=== PATIENT | female | born 1990 | race Caucasian/White ===

== ENCOUNTER 2019-12-25 15:56 | Inpatient (IN) | payer OTHER, SELFPAY ==
[2019-12-25] VITALS (10 sets, daily range): BP systolic 101–132; BP diastolic 58–86; PULSE 96–110; RESP 9–20; TEMP 37.1–37.6; O2SAT 98–100; BMI 22.4; BMI 19.3
--- NOTE | ~2019-12-25 | XR_ITS ---
XR knee LT 3V 12/25/2019 18:41 INDICATION: Left knee swelling and erythema PROCEDURE: 3 views left knee COMPARISON: No prior studies for comparison. FINDINGS: Fracture, dislocation or subluxation is not identified. Small joint effusion. The soft tiss ues appear within normal limits. No foreign bodies are identified. IMPRESSION: 1: No acute bone or joint abnormality. 2: Small joint effusion. Reviewed, dictated and finalized at location A.
--- NOTE | ~2019-12-25 | US_ITS ---
EXAMINATION: US venous doppler [facility] DATE: 12/27/2019 08:24 INDICATION: Left lower limb swelling. TECHNIQUE: Grayscale ultrasound images without and with compression and Doppler ultrasound images of the bilateral lower extremity veins were obtained. COMPARISON: None. FINDINGS: The visualized portions of right common femoral vein, profunda (deep) femoral vein, femoral vein, pop liteal vein, peroneal veins, posterior tibial veins, and greater saphenous vein outflow are patent. The visualized portions of left common femoral vein, profunda femoral vein, femoral vein, popliteal v ein, peroneal veins, posterior tibial veins, and greater saphenous vein outflow are patent. IMPRESSION: 1. No deep venous thrombosis. Reviewed, dictated and finalized at location A.
[2019-12-25 16:28] LABS: Glucose Point of Care > 500 (65-105)
[2019-12-25 16:33] LABS: Basophils Percent Auto 0.3 % (0.2-1.2); Eosinophils Absolute Auto 0.1 K/mm3 (0-0.3); Hematocrit 36.1 % (37.0-47.0); Hemoglobin 11.4 g/dL (12.0-15.0); Immature Granulocyte Absolute 0.05 K/mm3 (0.00-0.031); Immature Granulocyte Percent A 0.4 % (0-0.5); Mean Corpuscular HGB Conc 31.6 g/dl (32-36); Mean Corpuscular Hemoglobin 28.9 pg (26-34); Mean Corpuscular Volume 91.6 fl (80-100); Mean Platelet Volume 10.4 fl (7.4-10.4); Monocytes Absolute Auto 0.7 K/mm3 (0.1-0.6); Monocytes Percent Auto 6.3 % (2.6-8.5); Neutrophils Absolute Auto 9.6 K/mm3 (1.3-6.7); Platelet Count Result 232 k/mm3 (150-375); Red Blood Count 3.94 M/mm3 (4.2-5.4); Red Cell Distribution Width 11.9 % (11.5-14.5); White Blood Count 11.8 K/mm3 (4.5-10.0)
[2019-12-25 16:38] LABS: Add Urine Microscopic? YES; Appearance Urine Clear (Clear); Bilirubin Urine Negative (Negative); Blood Urine 2+ (Negative); Color Urine Colorless (Yellow); Glucose Urine UA 3+ mg/dL (Negative); Ketones Urine Negative (Negative); Leukocyte Esterase Ur Negative LEU/UL (Negative); Nitrate Urine Negative (Negative); Protein Urine Negative (Negative); Specific Grav Ur 1.026 (1.001-1.035); Urobilinogen Urine Negative mg/dL (<2.0); WBC Urine 0-3 /hpf
[2019-12-25 16:46] LABS: Alanine Aminotransferase 14 U/L (4-35); Albumin Level 4.2 g/dL (3.5-5.1); Alkaline Phosphatase 108 U/L (38-126); Aspartate Amino Transferase 14 U/L (14-36); Bilirubin,Total 0.1 mg/dL (0.2-1.3); Blood Urea Nitrogen 11 mg/dL (7-17); Carbon Dioxide 29 mmol/L (22-30); Chloride 96 mmol/L (98-107); Estimated Glomerular Filt Rate > 60; Potassium 4.2 mmol/L (3.4-5.0); Sodium 133 mmol/L (137-145)
[2019-12-25 16:55] LABS: Glucose 640 mg/dL (65-105)
--- NOTE | 2019-12-25 16:56 | ED.LOWEXIN ---
HPI - Extremity Injury (Lower) General Chief Complaint: Extremity Injury, Lower Stated Complaint: left knee redness/swelling possible cellulitis Time Seen by Provider: 12/25/19 16:55 History of Present Illness HPI Narrative: Left Knee pain, nausea, and vomiting, and dizziness. The knee pain started after being scratched by a cat a few days ago. Since that time she has developed pain, swelling, and redness of the knee. Today she suddenly became dizzy, nauseated, and diaphoretic. Related Data Home Medications Medication Instructions Recorded Confirmed fluoxetine [Prozac] 40 mg PO DAILY 07/06/19 07/06/19 insulin glargine [Lantus Solostar 30 unit SUBCUT DAILY 07/06/19 07/06/19 U-100 Insulin] insulin lispro [Admelog SoloStar 28 unit SUBCUT 07/06/19 U-100 Insulin] Allergies Allergy/AdvReac Type Severity Reaction Status Date / Time latex Allergy Unknown Swelling Verified 08/04/19 08:21 Review of Systems Review of Systems: All systems reviewed & are unremarkable except as noted in HPI and below Constitutional: Constitutional: Reports chills and Denies fever(s) Respiratory: Respiratory: Reports dyspnea Gastrointestinal: Gastrointestinal: Reports nausea and Reports vomiting Neurologic: Reports dizziness PMFSH Past Medical History Medical History Asthma Depression with anxiety Diabetes type I IBS (irritable bowel syndrome) Nose fracture Seasonal allergies Surgical History Surgical History Hx of section No significant past surgical history Family History Family History Mother Depression Sibling Family history of attention deficit hyperactivity disorder (ADHD) Social History Social History Smoking packs per day: 0.3 Smoking cigarettes per day: 6.0 Years smoked: 1 Smoking pack-years: 0.30 Smoking status: Former smoker Smoking end date: 07/28/02 Gender identity (if verbalized by the patient): Female Exam Const: General: alert and ill appearing Nutritional Appearance: well nourished Orientation/consciousness: patient oriented x3 Other: mild distress HENMT: Head: normal to inspection Resp: Effort & Inspection: normal respiratory effort Auscultation: clear to auscultation bilaterally Cardio: Rate: tachycardic Rhythm: regular rhythm GI: GI Palp: Yes Soft to palpation and No Tenderness to palpation present (GI) Skin: Other: erythema around left kneee Neuro: General: patient oriented x3, moves all extremities, no focal motor deficits and CN's II-XI intact bilaterally Speech: normal speech Extrem: Other: Tenderness and swelling to left knee Course Vital Signs Vital signs: Vital Signs Temperature 37.1 C 12/25/19 16:13 Pulse Rate 110 H 12/25/19 16:13 Respiratory Rate 18 12/25/19 16:13 Blood Pressure 132/86 12/25/19 16:13 Pulse Oximetry 100 12/25/19 16:13 Temperature 37.1 C 12/25/19 16:13 Pulse Rate 102 H 12/25/19 18:01 Respiratory Rate 13 12/25/19 18:01 Blood Pressure 119/73 12/25/19 18:01 Pulse Oximetry 99 12/25/19 18:01 MDM - Extremity Injury (Lower) MDM Narrative Medical decision making narrative: She has cellulitis around the left knee following cat scratch and very elevated glucose. She will need to be admitted for IV antibiotics and glucose control. She may need arthrocentesis. I do not feel comfortable performing through the infected skin at this time. Medical Records Attestation: I reviewed the patient's medical records. Lab Data Attestation: I reviewed the patient's lab results. Result diagrams: 12/25/19 16:23 12/25/19 16:23 Labs: Lab Results 12/25/19 12/25/19 12/25/19 Range/Units 16:23 16:23 16:23 WBC 11.8 H (4.5-10.0) K/mm3 RBC 3.94 L (4.2-5.
[2019-12-25] MEDS: INSULIN HUMAN REGULAR (*BKC) 100 UNITS/ML 10 UNITS IV PUSH (17:41)
[2019-12-25] MEDS: SODIUM CHLORIDE 0.9% IV 1,000 ML 999 ML IV CONT (17:52)
[2019-12-25] MEDS: ONDANSETRON INJ 4 MG/2 ML VIAL IV PUSH (17:52)
[2019-12-25] MEDS: AMPICILLIN SODIUM/SULBACTAM 3 GM in SODIUM CHLORIDE 0.9% IV 100 ML IVPB (17:54)
[2019-12-25 18:48] LABS: Erythrocyte Sedimentation Rate 51 mm/hr (0-20)
[2019-12-25 18:50] LABS: CRP 16.3 mg/dL (<1.0)
[2019-12-25 19:16] LABS: Glucose Point of Care 253 (65-105)
--- NOTE | 2019-12-25 20:32 | ADMGEN ---
This patient, Keren Timmons, was admitted to 2 Medical Room 241-01 @1945. Patient/family oriented to hospital policies and general routines including ID bracelet, bed and alarms, visiting hours, pain management, procedures, bathroom and other care routines, personal items, smoking policy, room service/diet, and visiting hours. Valuables list has been completed. Information on how to activate the Rapid Response Team has been discussed. Patient/Family are encouraged to report perceived risks to care and to ask questions if they do not understand what they are told or what they should do.
[2019-12-25] MEDS: LACTATED RINGERS 1,000 ML 125 ML IV CONT (21:20)
--- NOTE | 2019-12-25 21:45 | PM.IMHP ---
H&P: HPI History of Present Illness Chief complaint: Left knee pain and redness after cat scratch. Narrative: Keren Timmons is a 29-year-old female with type 1 diabetes mellitus diagnosed at the age of 3 presented to the emergency department earlier today for evaluation of pain and swelling in her left knee after her indoor cat scratched her 3 days ago. She notes that the scratch was superficial and bled only a small amount. The following day her knee was erythematous and edematous, and that has gotten progressively worse over the past day or so. She also reports ?exploding and tight? pain in the left knee as well as subjective fever, chills, and sweats. Her appetite has been okay but she will have occasional nausea. She has difficulties bending that knee due to the swelling and pain. No numbness or tingling below the left knee. No history of multidrug resistant organisms or gout. She has no swelling in any other joints. Review of Systems Review of Systems: Narrative: Twelve systems were reviewed with pertinent positives and negatives as per HPI. No cold or flu symptoms. She denies cough and shortness of breath. No vomiting, diarrhea, or dysuria. She admits that her diabetes is not very well controlled with a hemoglobin A1c of 12.7% in October of 2018. She is hopeful to get on insulin pump with glucometer, and has an upcoming appointment with her er rn. She denies blurry vision, polydipsia, and polyuria. She has no history of nephropathy or retinopathy but she does have neuropathy in her legs, feet, and occasionally hands. Except as documented, all other systems were reviewed and are negative. [facility] Past Medical History Medical History (Updated 12/25/19 @ 23:32 by Anita Moore PA-C) Asthma Depression with anxiety IBS (irritable bowel syndrome) Nose fracture Seasonal allergies Type 1 diabetes mellitus With diabetic peripheral neuropathy. Hemoglobin A1c was 12.7% in October 2018. Surgical History Surgical History (Updated 12/25/19 @ 23:27 by Anita Moore PA-C) History of section History of cholecystectomy Family History Family History Mother Depression Sibling Family history of attention deficit hyperactivity disorder (ADHD) Social History Social History (Updated 12/25/19 @ 23:28 by Anita Moore PA-C) Social History: The patient lives in [place] with her 7-year-old daughter. 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 She smoked a few cigarettes a day for about a year when she was younger. She denies alcohol and illicit substance use. She designates her mother, Georgette Timmons, as her surrogate decision maker and she wishes to be a full code. Smoking packs per day: 0.3 Smoking cigarettes per day: 6.0 Years smoked: 1 Smoking pack-years: 0.30 Smoking status: Never smoker Second hand tobacco smoke exposure: Yes (ex fiance used to smoke in the basement) Smoking end date: 07/28/02 Alcohol intake: never Substance use: never Substance use type: does not use Gender identity (if verbalized by the patient): Female Meds Home Medications and Allergies Home Medications Medication Instructions Recorded Confirmed Type fluoxetine [Prozac] 40 mg PO DAILY 07/06/19 12/25/19 History albuterol sulfate [ProAir HFA] 2 puff INHALATION QID PRN 12/25/19 12/25/19 History budesonide-formoterol [Symbicort] 2 puff INHALATION Q12H 12/25/19 12/25/19 History cetirizine [Zyrtec] 10 mg PO DAILY 12/25/19 12/25/19 History fluticasone propionate [Flonase 1 spray INTRANASAL DAILY 12/25/19 12/25/19 History Allergy Relief] gabapentin 300 mg PO TID PRN 12/25/19 12/25/19 History insulin aspart U-100 [Novolog 5 unit SUBCUT TID 12/25/19 12/25/19 History PenFill U-100 Insulin] insulin glargine [Basaglar KwikPen 34 unit SUB-Q QPM 12/25/19 12/25/19 History U-100 Insulin]
[2019-12-25 21:53] LABS: Glucose Point of Care 178 (65-105)
[2019-12-25 23:19] LABS: Blood Urea Nitrogen 8 mg/dL (7-17); Calcium 8.4 mg/dL (8.4-10.2); Carbon Dioxide 29 mmol/L (22-30); Chloride 102 mmol/L (98-107); Estimated CRCL calculation 143 ml/min; Estimated Glomerular Filt Rate > 60; Glucose 185 mg/dL (65-105); Magnesium 1.7 mg/dL (1.6-2.3); Potassium 3.6 mmol/L (3.4-5.0); Sodium 135 mmol/L (137-145); Uric Acid 1.7 mg/dL (2.5-7.5)
[2019-12-25 23:31] LABS: Hemoglobin A1C 12.8 % (<5.7)
[2019-12-25] MEDS: SODIUM CHLORIDE 0.9% IV 1,000 ML 75 ML IV CONT (23:57)
[2019-12-26 00:02] VITALS: TEMP 37.9
[2019-12-26] MEDS: ACETAMINOPHEN 325 MG TABLET 650 MG PO (00:02)
[2019-12-26] MEDS: AMPICILLIN SODIUM/SULBACTAM 3 GM in SODIUM CHLORIDE 0.9% IV 100 ML IVPB ×5 (00:06→23:51)
[2019-12-26 01:02] VITALS: TEMP 38.2
[2019-12-26] MEDS: ONDANSETRON INJ 4 MG/2 ML VIAL IV PUSH ×4 (05:23→21:33)
[2019-12-26 05:30] LABS: Basophils Percent Auto 0.2 % (0.2-1.2); Eosinophils Absolute Auto 0.1 K/mm3 (0-0.3); Eosinophils Percent Auto 1.1 % (0-4.4); Hematocrit 30.8 % (37.0-47.0); Immature Granulocyte Absolute 0.06 K/mm3 (0.00-0.031); Immature Granulocyte Percent A 0.5 % (0-0.5); Lymphocytes Absolute Auto 2.33 K/mm3 (0.9-3.2); Lymphocytes Percent Auto 18.6 % (18.3-44.2); Mean Corpuscular HGB Conc 32.5 g/dl (32-36); Mean Corpuscular Volume 89.3 fl (80-100); Mean Platelet Volume 10.3 fl (7.4-10.4); Monocytes Absolute Auto 0.9 K/mm3 (0.1-0.6); Monocytes Percent Auto 6.8 % (2.6-8.5); Neutrophils Absolute Auto 9.1 K/mm3 (1.3-6.7); Neutrophils Percent Auto 72.8 % (45.5-73.1); Platelet Count Result 217 k/mm3 (150-375); Red Blood Count 3.45 M/mm3 (4.2-5.4); Red Cell Distribution Width 11.9 % (11.5-14.5); White Blood Count 12.5 K/mm3 (4.5-10.0)
[2019-12-26 05:44] LABS: Blood Urea Nitrogen 6 mg/dL (7-17); Calcium 8.1 mg/dL (8.4-10.2); Carbon Dioxide 26 mmol/L (22-30); Chloride 101 mmol/L (98-107); Estimated CRCL calculation 143 ml/min; Estimated Glomerular Filt Rate > 60; Glucose 295 mg/dL (65-105); Magnesium 1.7 mg/dL (1.6-2.3); Potassium 3.9 mmol/L (3.4-5.0); Sodium 132 mmol/L (137-145)
[2019-12-26 05:58] VITALS: BP 97/59; PULSE 92; RESP 16; TEMP 37.2; O2SAT 98
[2019-12-26 07:52] LABS: Glucose Point of Care 294 (65-105)
[2019-12-26] MEDS: INSULIN ASPART (*BKC) 100 UNITS/ML SUB-Q ×6 (08:38→16:23)
[2019-12-26] MEDS: FLUTICASONE PROPIONATE 0.05% NA SPR 16 GM BTL (*BKC) 1 SPRAY NASAL (08:42)
[2019-12-26] MEDS: FLUOXETINE HCL 20 MG CAP 40 MG PO (08:42)
[2019-12-26] MEDS: LORATADINE 10 MG TABLET PO (08:42)
[2019-12-26 11:58] LABS: Glucose Point of Care 268 (65-105)
[2019-12-26] MEDS: SODIUM CHLORIDE 0.9% IV 1,000 ML 100 ML IV CONT (13:02)
[2019-12-26 14:00] VITALS: BP 110/69; PULSE 96; RESP 18; TEMP 36.8; O2SAT 98
--- NOTE | 2019-12-26 16:04 | CONS_ITS ---
DATE OF CONSULTATION: 12/26/2019 HISTORY OF PRESENT ILLNESS: This is a 29-year-old female who has a history of type 1 diabetes and she states that she was either doing some gardening or her cat scratched her on the left knee and she started having progressive pain and redness in the left knee and she came to the emergency department and she was then admitted for a cellulitis of the left knee. Today, she feels a lot better. She is on ampicillin. She is on vancomycin as well and that has improved her cellulitis significantly according to the patient and according to the nurse. She denies any other pain in the hip or in the rest of the leg. She denies any right-sided extremity pain. Denies any upper extremity pain and denies any head pain or neck pain. PAST MEDICAL HISTORY: Type 1 diabetes, seasonal allergies, depression, anxiety, irritable bowel syndrome. SOCIAL HISTORY: She lives on her own with her child. FAMILY HISTORY: Depression. 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 MEDICATION: 1. Prozac. 2. Albuterol. 3. Symbicort. 4. Zyrtec. 5. Flonase. 6. Gabapentin. 7. Insulin. ALLERGIES: LATEX. PHYSICAL EXAMINATION: The left knee was examined. She has a cellulitis, which is just superior to the superior portal of the patella, and it extends down to the prepatellar region. She does not have a significant amount of effusion in the prepatellar bursa region, but she does have tenderness in that region. She does not have a knee effusion. The knee in itself is nontender, but the prepatellar bursa region is tender at the patellar tendon site and midsubstance and insertion. She does not have what appears to be a septic knee joint. She is able to perform a straight leg raise. The hip exam is normal without any pain. She has no tenderness in the thigh. She has no tenderness in the calf, the tib-fib or foot. She is able to dorsi and plantar flex of her left foot and she is otherwise neurovascularly intact. The right lower extremity examined. She has no pain. She has no sign of trauma. She has full motion of all joints and she is otherwise neurovascularly intact. Upper extremity examination shows no sign of infections or abscess. No trauma. She has no pain with elevation of her shoulders. The neck is nontender. Back nontender in thoracic, lumbar, and sacroiliac region. LABORATORY WORKUP: Her white count today is 12, it is slightly increased from yesterday. Her ESR is 51, which is elevated. Urine appears to be negative for any infection. She has a CRP, it is not having results yet. IMPRESSION: Left knee prepatellar bursa. She does not appear to have an abscess at this point. She may develop one. I think for now it is reasonable to treat with IV antibiotics and continue to monitor her closely. We will see her on a daily basis. If she does develop a prepatellar bursitis with an abscess, then she will require incision and drainage, irrigation debridement. We talked about that as well. So at this point, we will go ahead and observe her and continue the antibiotics. KANDIS KEYS M.D. TICKET SPECULATOR TICKET SPECULATOR D I MT: Chriss
[2019-12-26 16:28] LABS: Glucose Point of Care 217 (65-105)
[2019-12-26] MEDS: GABAPENTIN 300 MG CAPSULE PO (16:29)
--- NOTE | 2019-12-26 16:47 | PM.IMPN ---
Progress Note: A&P Assessment and Plan (1) Cellulitis of knee, left: Code(s): L03.116 - Cellulitis of left lower limb Status: Acute Assessment and Plan: She developed erythema and edema on 12/24/2019, after both gardening, where she was on her knees in the dirt, and being scratched by her kitten. Her white count is mildly elevated. She has had low-grade fever with T-max of 100.7?. Orthopedics has been consulted to ensure there is no joint infection. Dr. Huggins's input is appreciated. Continue Unasyn and vancomycin. Continue IV fluids. Blood cultures are pending. Await results. Continue to elevate the extremity. She has been started on Unasyn as this is presumably due to a cat scratch. Will perform venous Doppler to exclude DVT. (2) Type 1 diabetes mellitus: Code(s): E10.9 - Type 1 diabetes mellitus without complications Status: Acute Assessment and Plan: Patient has had type 1 diabetes since she has been 2 years old. It appears that she has been poorly controlled for some time. She states that her A1c is usually greater than 12. She is established with an strategic business development. Updated A1c is 12.8% Continue basal insulin Continue high dose sliding scale insulin, Accu-Cheks, and hypoglycemic protocol. I will ask SHANELLE Ryan to evaluate her on Friday. (3) Asthma: Code(s): J45.909 - Unspecified asthma, uncomplicated Status: Acute Assessment and Plan: This is stable. She denies shortness of breath or wheezing. Continue maintenance inhalers. Continue to monitor respiratory status Subjective Date/time seen: 12/26/19 16:47 Interval history: Date of service: 12/26/2019 She reports she is feeling about the same today. She continues to endorse left knee pain. She specifically has pain with movement. She denies subjective fever or chills. She denies nausea, vomiting, or diarrhea. She does feel somewhat lightheaded and weak. She also complains of numbness and tingling in her bilateral lower extremities related to her neuropathy. She denies shortness of breath, dyspnea on exertion, orthopnea, chest pain, or palpitations. Her appetite has been good. She is sleeping well. Review of Systems Review of Systems: Narrative: A 12 point review of systems was reviewed with pertinent positives and negatives as per HPI. Exam Narrative: Exam Narrative: Ms. Timmons is examined alone today. She is a well-appearing, well-nourished 29-year-old female who was lying supine in bed. She appears comfortable and is in no acute respiratory distress. HR 92, BP 97/59, RR 16, T 98.9?, 98% on room air Neuro: awake, alert and oriented x4, speech clear, no focal neuro deficits noted HEENMT: normocephalic, atraumatic, EOMI, sclerae anicteric, moist oral mucosa, normal oropharynx Neck: supple, no lymphadenopathy Respiratory: clear to auscultation bilaterally, normal respiratory effort without accessory muscle use Cardio: regular rate, regular rhythm, normal S1 and S2 Abdomen: normal to inspection, nondistended, normoactive bowel sounds, soft, nontender to palpation Extremities: Left lower extremity with significant erythema extending from superior patella to tibial tuberosity. The area is edematous. There are 2 small excoriations superior and lateral to the patella. She has limited range of motion and is able to flex the knee to approximately 120?. Right lower extremity is nonedematous. She is able to perform dorsiflexion and plantar flexion bilaterally. Dorsal pedis pulses are palpable bilaterally. Skin: no rashes or lesions, warm and dry Psych: Pleasant and cooperative, normal mood and affect, judgment and insight intact Objective Data Vital Signs Vital Signs: Vital Signs - 24 hr 12/25/19 17:48 12/25/19 17:54 12/25/19 18:00 Temperature Pulse Rate 104 H 101 H 102 H Respiratory Rate 15 12 9 L Blood Pressure 114/62 Pulse Oximetry 100 100 98 12/25/19 18
[2019-12-26] MEDS: INSULIN GLARGINE (*BKC) 100 UNITS/ML 34 UNITS SUB-Q (17:30)
[2019-12-26] MEDS: HYDROMORPHONE HCL 1 MG/ML INJ 0.5 MG IV PUSH (20:35)
[2019-12-26 22:00] VITALS: BP 119/70; PULSE 94; RESP 12; TEMP 36.2; O2SAT 98
[2019-12-26 22:38] LABS: Glucose Point of Care 218 (65-105)
[2019-12-27] MEDS: SODIUM CHLORIDE 0.9% IV 1,000 ML 100 ML IV CONT ×2 (01:21→18:16)
[2019-12-27] MEDS: AMPICILLIN SODIUM/SULBACTAM 3 GM in SODIUM CHLORIDE 0.9% IV 100 ML IVPB ×4 (05:32→23:20)
[2019-12-27] MEDS: HYDROMORPHONE HCL 1 MG/ML INJ 0.5 MG IV PUSH ×5 (05:32→23:17)
[2019-12-27] MEDS: ONDANSETRON INJ 4 MG/2 ML VIAL IV PUSH (05:32)
[2019-12-27 05:38] VITALS: BP 123/74; PULSE 91; RESP 14; TEMP 36.2; O2SAT 98
[2019-12-27 06:06] LABS: Basophils Percent Auto 0.4 % (0.2-1.2); Eosinophils Absolute Auto 0.2 K/mm3 (0-0.3); Eosinophils Percent Auto 1.8 % (0-4.4); Hematocrit 31.9 % (37.0-47.0); Hemoglobin 9.9 g/dL (12.0-15.0); Immature Granulocyte Absolute 0.04 K/mm3 (0.00-0.031); Immature Granulocyte Percent A 0.4 % (0-0.5); Lymphocytes Absolute Auto 1.88 K/mm3 (0.9-3.2); Lymphocytes Percent Auto 19.8 % (18.3-44.2); Mean Corpuscular Hemoglobin 28.5 pg (26-34); Mean Corpuscular Volume 91.9 fl (80-100); Mean Platelet Volume 11.1 fl (7.4-10.4); Monocytes Absolute Auto 0.6 K/mm3 (0.1-0.6); Monocytes Percent Auto 6.4 % (2.6-8.5); Neutrophils Absolute Auto 6.8 K/mm3 (1.3-6.7); Neutrophils Percent Auto 71.2 % (45.5-73.1); Platelet Count Result 236 k/mm3 (150-375); Red Blood Count 3.47 M/mm3 (4.2-5.4); Red Cell Distribution Width 11.9 % (11.5-14.5); White Blood Count 9.5 K/mm3 (4.5-10.0)
[2019-12-27 06:16] LABS: Alanine Aminotransferase 11 U/L (4-35); Albumin Level 3.3 g/dL (3.5-5.1); Alkaline Phosphatase 73 U/L (38-126); Aspartate Amino Transferase 16 U/L (14-36); Bilirubin,Total 0.1 mg/dL (0.2-1.3); Blood Urea Nitrogen 6 mg/dL (7-17); Calcium 8.3 mg/dL (8.4-10.2); Carbon Dioxide 29 mmol/L (22-30); Chloride 99 mmol/L (98-107); Estimated CRCL calculation 143 ml/min; Estimated Glomerular Filt Rate > 60; Glucose 252 mg/dL (65-105); Sodium 137 mmol/L (137-145)
[2019-12-27 08:24] LABS: Glucose Point of Care 224 (65-105)
[2019-12-27] MEDS: INSULIN ASPART (*BKC) 100 UNITS/ML SUB-Q ×6 (08:26→17:06)
[2019-12-27] MEDS: FLUTICASONE PROPIONATE 0.05% NA SPR 16 GM BTL (*BKC) 1 SPRAY NASAL (08:28)
[2019-12-27] MEDS: FLUOXETINE HCL 20 MG CAP 40 MG PO (08:28)
[2019-12-27] MEDS: LORATADINE 10 MG TABLET PO (08:29)
--- NOTE | 2019-12-27 10:02 | PM.PNORT ---
Progress Note: A&P Assessment and Plan (1) Prepatellar bursitis: Qualifiers: Laterality: left Qualified Code(s): M70.42 - Prepatellar bursitis, left knee Code(s): M70.40 - Prepatellar bursitis, unspecified knee Status: Acute Assessment and Plan: Continue pain control. Continue IV antibiotics. WBAT LLE. Ice/compression LEFT Knee. Will continue to monitor. Subjective Subjective Date/Time Seen: 12/27/19 10:02 Sitting up in chair eating breakfast. Complaints of pain left knee, reports mild improvement Review of Systems Review of Systems: All systems reviewed & are unremarkable except as noted in HPI and below Constitutional: Constitutional: Denies chills, Denies fatigue, Denies fever(s), Denies lethargy and Denies weakness Cardiovascular: Cardiovascular: Denies chest pain and Denies lightheadedness Respiratory: Respiratory: Denies cough, Denies dyspnea and Denies wheezing Gastrointestinal: Gastrointestinal: Denies abdominal pain, Denies bloating, Denies diarrhea, Denies nausea and Denies vomiting Musculoskeletal: Comments: Left knee pain/swelling Exam Const: General: comfortable and no acute distress Resp: Effort & Inspection: normal respiratory effort Cardio: Rate: regular rate Rhythm: regular rhythm Skin: General skin exam: erythema (left knee ) Wounds: no wounds Neuro: General: No gait normal (pain left knee ) Cognition (Neuro): normal cognition Sensory Exam: normal sensation Extrem: Right lower extremity: normal to inspection, full ROM, normal capillary refill, knee Details: normal to inspection and normal ROM; no tenderness and no swelling, lower leg Details: normal to inspection, ankle Details: normal to inspection; no tenderness and no swelling and foot Details: normal capillary refill and normal to inspection; no tenderness Left lower extremity: normal capillary refill, knee Details: tenderness Location: of the pre-patellar area, swelling Location: of the pre-patellar area, abnormal ROM Details: pain with active ROM Details: with extension and with flexion and pain with passive ROM Details: with extension and with flexion and warmth (pre-patellar bursa) and foot (2+ pedal pulses. +ankle dorsiflexion/plantarflexion ) Psych: Mental Status: mental status grossly normal Affect: normal affect Objective Data Vital Signs Vital Signs: Vital Signs - 24 hr 12/26/19 14:00 12/26/19 22:00 12/27/19 05:38 Temperature 36.8 C 36.2 C L 36.2 C L Pulse Rate 96 94 91 Respiratory Rate 18 12 14 Blood Pressure 110/69 119/70 123/74 Pulse Oximetry 98 98 98 Intake/Output Intake/Output: Intake & Output 12/24/19 12/25/19 12/26/19 12/27/19 23:59 23:59 23:59 23:59 Intake Total 1350 4070 450 Output Total 2100 400 Balance 1350 1970 50 Meds/Results Medications: Active Medications Generic Name Dose Route Start Last Admin Trade Name Freq PRN Reason Stop Dose Admin Acetaminophen 650 mg 12/25/19 22:40 12/26/19 00:02 Tylenol Tablet PO 650 mg Q6H PRN Administration Mild Pain (1-3) or Fever Hydrocodone Bitart/Acetaminophen 1 tab 12/25/19 22:40 12/27/19 01:25 [place] 5-325 Mg PO 1 tab Q6H PRN Administration Pain Rated 4-6 Albuterol 2 puff 12/25/19 22:42 Proventil Hfa INHALATION QIDRT PRN Shortness Of Breath Budesonide/Formoterol Fumarate 2 puff 12/26/19 08:00 12/27/19 09:04 Symbicort 160-4.5 Mcg (*Sp) Inhaler INHALATION 2 puff Q12HRT JASON Administration Dextrose 12.5 gm 12/25/19 22:40 Dextrose 50% Syringe IV PUSH PRN PRN Hypoglycemia Protocol Fluoxetine HCl 40 mg 12/26/19 09:00 12/27/19 08:28 Prozac PO 40 mg DAILY JASON Administration Fluticasone Propionate 1 spray 12/26/19 09:00 12/27/19 08:28 Flonase 0.05% Nasal [place] NASAL 1 spray DAILY JASON Administration Gabapentin 300 mg 12/25/19 22:42 12/26/19 16:29 Neurontin PO 300 mg TID PRN Administration NEUR
[2019-12-27 11:32] LABS: Glucose Point of Care 218 (65-105)
[2019-12-27 12:05] VITALS: BMI 19.3
[2019-12-27 13:35] LABS: Vancomycin Trough < 5.0 ug/mL (10.0-20.0)
[2019-12-27 13:55] VITALS: BP 121/53; PULSE 94; RESP 20; TEMP 37.1; O2SAT 97
--- NOTE | 2019-12-27 14:25 | PM.IMPN ---
Progress Note: A&P Assessment and Plan (1) Cellulitis of knee, left: Code(s): L03.116 - Cellulitis of left lower limb Status: Acute Assessment and Plan: She developed erythema and edema on 12/24/2019, after both gardening, where she was on her knees in the dirt, and being scratched by her kitten. T-max of 100.7? but has been afebrile >24 hours. Leukocytosis has resolved. CRP is elevated at 16.3. Orthopedics has been consulted to ensure there is no joint infection. Dr. Huggins's input is appreciated. Continue Unasyn and vancomycin. Continue IV fluids. Preliminary blood cultures reveal NGTD. Await final results. Continue to trend CRP. Continue to elevate the extremity. (2) Type 1 diabetes mellitus: Code(s): E10.9 - Type 1 diabetes mellitus without complications Status: Acute Assessment and Plan: Patient has had type 1 diabetes since she has been 2 years old. It appears that she has been poorly controlled for some time. She states that her A1c is usually >12. 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 Updated A1c is 12.8%. Continue basal insulin Continue high dose sliding scale insulin, Accu-Cheks, and hypoglycemic protocol. Continue carb consistent diet She was evaluated by CDE today. (3) Asthma: Code(s): J45.909 - Unspecified asthma, uncomplicated Status: Acute Assessment and Plan: This is stable. She denies shortness of breath or wheezing. Continue maintenance inhalers. Continue to monitor respiratory status Subjective Date/time seen: 12/27/19 14:25 Interval history: Date of service: 12/27/2019 Ms. Timmons reports she is feeling better today but still endorsing left knee pain. She has not attempted to bear weight. She reports flexion of knee sends shooting pain down to her toes. She believes the swelling has improved somewhat. She denies subjective fevers but does endorse chills last night that have resolved. She denies nausea or vomiting. She is urinating regularly and denies dysuria or hematuria. She has not had a bowel movement in 2 days. She denies abdominal pain or cramping. She denies chest pain or SOB. Review of Systems Review of Systems: Narrative: A 12 point review of systems was reviewed with pertinent positives and negatives as per HPI. Exam Narrative: Exam Narrative: Ms. Timmons is examined alone today. She is a well-appearing, well-nourished 29-year-old female who is lying supine in bed. She appears comfortable and is in no acute respiratory distress. HR 92, BP 97/59, RR 16, T 98.9?, 98% on room air Neuro: awake, alert and oriented x4, speech clear, no focal neuro deficits noted HEENMT: normocephalic, atraumatic, EOMI, sclerae anicteric, moist oral mucosa Neck: supple, no lymphadenopathy Respiratory: clear to auscultation bilaterally, normal respiratory effort without accessory muscle use Cardio: regular rate, regular rhythm, normal S1 and S2 Abdomen: normal to inspection, nondistended, normoactive bowel sounds, soft, nontender to palpation Extremities: Left lower extremity with erythema extending from superior patella to tibial tuberosity. The area is edematous and warm to palpation. There are 2 small excoriations superior and lateral to the patella. She has limited range of motion and is able to flex the knee to approximately 120?. Right lower extremity is nonedematous. She is able to perform dorsiflexion and plantar flexion bilaterally. Dorsal pedis pulses are palpable bilaterally. Skin: no rashes or lesions, warm and dry Psych: Pleasant and cooperative, normal mood and affect, judgment and insight intact Objective Data Vital Signs Vital Signs: Vital Signs - 24 hr 12/26/19 22:00 12/27/19 05:38 12/27/19 13:55 Temperature 97.2 F L 97.2 F L 98.8 F Pulse Rate 94 91 94 Respiratory Rate 12 14 20 Blood Pressure 119/70 123/74 121/53 L Pulse Oximetry 98 98 97 Intake/Output Intake/Output: Intake & Output
[2019-12-27 15:46] LABS: CRP 17.1 mg/dL (<1.0)
[2019-12-27 17:06] LABS: Glucose Point of Care 218 (65-105)
[2019-12-27] MEDS: GABAPENTIN 300 MG CAPSULE PO (17:10)
[2019-12-27] MEDS: INSULIN GLARGINE (*BKC) 100 UNITS/ML 34 UNITS SUB-Q (18:16)
[2019-12-27 19:49] VITALS: PULSE 92; RESP 16
[2019-12-27 20:49] VITALS: BP 122/69; PULSE 95; RESP 14; TEMP 36.8; O2SAT 100
[2019-12-27 20:49] LABS: Glucose Point of Care 147 (65-105)
[2019-12-27] MEDS: polyethylene glycoL 3350 17 GM POWD.PACK PO (21:51)
[2019-12-28] MEDS: ONDANSETRON INJ 4 MG/2 ML VIAL IV PUSH ×2 (02:16→07:48)
[2019-12-28] MEDS: HYDROMORPHONE HCL 1 MG/ML INJ 0.5 MG IV PUSH (05:09)
[2019-12-28] MEDS: AMPICILLIN SODIUM/SULBACTAM 3 GM in SODIUM CHLORIDE 0.9% IV 100 ML IVPB ×3 (05:10→18:16)
[2019-12-28 05:30] LABS: Basophils Percent Auto 0.3 % (0.2-1.2); Eosinophils Absolute Auto 0.1 K/mm3 (0-0.3); Eosinophils Percent Auto 1.8 % (0-4.4); Hematocrit 29.2 % (37.0-47.0); Hemoglobin 9.3 g/dL (12.0-15.0); Immature Granulocyte Absolute 0.03 K/mm3 (0.00-0.031); Immature Granulocyte Percent A 0.4 % (0-0.5); Lymphocytes Absolute Auto 1.78 K/mm3 (0.9-3.2); Lymphocytes Percent Auto 24.3 % (18.3-44.2); Mean Corpuscular HGB Conc 31.8 g/dl (32-36); Mean Corpuscular Hemoglobin 29.2 pg (26-34); Mean Corpuscular Volume 91.5 fl (80-100); Mean Platelet Volume 10.8 fl (7.4-10.4); Monocytes Absolute Auto 0.6 K/mm3 (0.1-0.6); Monocytes Percent Auto 7.5 % (2.6-8.5); Neutrophils Absolute Auto 4.8 K/mm3 (1.3-6.7); Neutrophils Percent Auto 65.7 % (45.5-73.1); Platelet Count Result 233 k/mm3 (150-375); Red Blood Count 3.19 M/mm3 (4.2-5.4); Red Cell Distribution Width 11.9 % (11.5-14.5); White Blood Count 7.3 K/mm3 (4.5-10.0)
[2019-12-28 05:43] VITALS: BP 110/68; PULSE 91; RESP 18; TEMP 37.3; O2SAT 97
[2019-12-28] MEDS: SODIUM CHLORIDE 0.9% IV 1,000 ML 100 ML IV CONT ×2 (05:48→18:15)
[2019-12-28 05:55] LABS: Blood Urea Nitrogen 6 mg/dL (7-17); CRP 12.9 mg/dL (<1.0); Calcium 8.3 mg/dL (8.4-10.2); Carbon Dioxide 31 mmol/L (22-30); Chloride 101 mmol/L (98-107); Estimated CRCL calculation 118 ml/min; Estimated Glomerular Filt Rate > 60; Glucose 146 mg/dL (65-105); Potassium 3.8 mmol/L (3.4-5.0); Sodium 136 mmol/L (137-145)
[2019-12-28 07:33] LABS: Glucose Point of Care 137 (65-105)
[2019-12-28 07:36] VITALS: BP 130/80; PULSE 87; RESP 12; TEMP 36.9; O2SAT 99
[2019-12-28] MEDS: INSULIN ASPART (*BKC) 100 UNITS/ML SUB-Q ×4 (07:56→16:30)
[2019-12-28] MEDS: LORATADINE 10 MG TABLET PO (07:59)
[2019-12-28] MEDS: FLUTICASONE PROPIONATE 0.05% NA SPR 16 GM BTL (*BKC) 1 SPRAY NASAL (07:59)
[2019-12-28] MEDS: FLUOXETINE HCL 20 MG CAP 40 MG PO (07:59)
--- NOTE | 2019-12-28 09:11 | PM.PNORT ---
Progress Note: A&P Assessment and Plan (1) Prepatellar bursitis: Qualifiers: Laterality: left Qualified Code(s): M70.42 - Prepatellar bursitis, left knee Code(s): M70.40 - Prepatellar bursitis, unspecified knee Status: Acute Assessment and Plan: CRP trending down, 12.9. WBC normal. Erythema to prepatellar bursa with mild improvement, mild joint effusion noted. Continue pain control. Continue IV antibiotics. WBAT LLE. Ice/compression LEFT Knee. Will await evaluation by Dr. Huggins today to determine further conservative vs. operative treatment options. Subjective Subjective Date/Time Seen: 12/28/19 09:11 Sitting up in chair. Continued complaints of left knee pain. Now with increased swelling on the lateral aspect of the knee/calf. Review of Systems Review of Systems: All systems reviewed & are unremarkable except as noted in HPI and below Constitutional: Constitutional: Denies chills, Denies fatigue, Denies fever(s), Denies lethargy and Denies weakness Cardiovascular: Cardiovascular: Denies chest pain and Denies lightheadedness Respiratory: Respiratory: Denies cough, Denies dyspnea and Denies wheezing Gastrointestinal: Gastrointestinal: Denies abdominal pain, Denies bloating, Denies diarrhea, Denies nausea and Denies vomiting Musculoskeletal: Comments: Left knee pain/swelling Exam Const: General: comfortable and no acute distress Resp: Effort & Inspection: normal respiratory effort Cardio: Rate: regular rate Rhythm: regular rhythm Skin: General skin exam: erythema (left knee ) Wounds: no wounds Neuro: General: No gait normal (pain left knee ) Cognition (Neuro): normal cognition Sensory Exam: normal sensation Extrem: Right lower extremity: normal to inspection, full ROM, normal capillary refill, knee Details: normal to inspection and normal ROM; no tenderness and no swelling, lower leg Details: normal to inspection, ankle Details: normal to inspection; no tenderness and no swelling and foot Details: normal capillary refill and normal to inspection; no tenderness Left lower extremity: normal capillary refill, knee Details: tenderness Location: of the pre-patellar area, swelling (Lateral Calf ) Location: of the proximal fibula and of the pre-patellar area, abnormal ROM Details: pain with active ROM Details: with flexion, pain with passive ROM Details: with flexion and with range as follows (AROM: 0-115) and warmth (pre-patellar bursa); no abrasions, no lacerations, no ecchymosis and no crepitus and foot (2+ pedal pulses. +ankle dorsiflexion/plantarflexion ) Psych: Mental Status: mental status grossly normal Affect: normal affect Objective Data Vital Signs Vital Signs: Vital Signs - 24 hr 12/27/19 13:55 12/27/19 19:49 12/27/19 20:49 Temperature 37.1 C 36.8 C Pulse Rate 94 92 95 Respiratory Rate 20 16 14 Blood Pressure 121/53 L 122/69 Pulse Oximetry 97 100 12/28/19 05:43 12/28/19 07:36 Temperature 37.3 C 36.9 C Pulse Rate 91 87 Respiratory Rate 18 12 Blood Pressure 110/68 130/80 Pulse Oximetry 97 99 Intake/Output Intake/Output: Intake & Output 12/25/19 12/26/19 12/27/19 12/28/19 23:59 23:59 23:59 23:59 Intake Total 1350 4320 3210 1220 Output Total 2100 2000 900 Balance 1350 2220 1210 320 Meds/Results Medications: Active Medications Generic Name Dose Route Start Last Admin Trade Name Freq PRN Reason Stop Dose Admin Acetaminophen 650 mg 12/25/19 22:40 12/26/19 00:02 Tylenol Tablet PO 650 mg Q6H PRN Administration Mild Pain (1-3) or Fever Hydrocodone Bitart/Acetaminophen 1 tab 12/25/19 22:40 12/28/19 07:59 [place] 5-325 Mg PO 1 tab Q6H PRN Administration Pain Rated 4-6 Albuterol 2 puff 12/25/19 22:42 Proventil Hfa INHALATION QIDRT PRN Shortness Of Breath Budesonide/Formoterol Fumarate 2 puff 12/26/19 08:00 12/27/19 19:47 Symbicort 160-4.5 Mcg (*Sp) Inhaler INHALATION 2 puff Q1
[2019-12-28 11:45] LABS: Glucose Point of Care 214 (65-105)
--- NOTE | 2019-12-28 13:30 | PM.IMPN ---
Progress Note: A&P Assessment and Plan (1) Cellulitis of knee, left: Code(s): L03.116 - Cellulitis of left lower limb Status: Acute Assessment and Plan: She developed erythema and edema on 12/24/2019, after both gardening, where she was on her knees in the dirt, and being scratched by her kitten. T-max of 100.7? but has been afebrile >24 hours. Leukocytosis has resolved. CRP was elevated and is trending down. She reports that she now has swelling at the lateral aspect of her knee/calf which is new. Venous doppler was negative for DVT. Preliminary blood cultures reveal NGTD. Ortho is on board and input is greatly appreciated. Per ortho notes, Dr. Huggins will evaluate the patient today for further recommendations. Continue Unasyn and vancomycin. Continue IV fluids. Will consult Dr. Billings for further recommendations regarding antibiotics. Await final blood cultures Continue analgesics PRN Continue to trend CRP Continue to elevate the extremity Continue to monitor (2) Type 1 diabetes mellitus: Code(s): E10.9 - Type 1 diabetes mellitus without complications Status: Acute Assessment and Plan: Patient has had type 1 diabetes since she has been 2 years old. It appears that she has been poorly controlled for some time. She states that her A1c is usually >12. She is established with an circulator. Updated A1c is 12.8%. Blood sugars are slightly above target with some readings in the low 200s. Continue basal insulin, will increase to 40 units Continue high dose sliding scale insulin, Accu-Cheks, and hypoglycemic protocol. Continue carb consistent diet She was evaluated by CDE She reports that she plans to get an insulin pump per endocrinology outpatient (3) Asthma: Code(s): J45.909 - Unspecified asthma, uncomplicated Status: Acute Assessment and Plan: Stable and not in acute exacerbation. Continue albuterol PRN Continue symbicort Continue to monitor respiratory status (4) Anemia: Code(s): D64.9 - Anemia, unspecified Status: Acute Assessment and Plan: The patient reports that she just finished her menstrual cycle. Hb is 9.3 and Hct 29.2. Normocytic. She did receive fluids so dilution may be contributing. She also has a hx of asthma and T1DM so she may have a component of anemia of chronic disease. WIll check iron studies, vitamin B12 and folate Continue to monitor Subjective Date/time seen: 12/28/19 13:30 Interval history: I am assuming care for Mrs. Timmons who is seen and examined at bedside. She reports that she is still having significant pain in the left knee. She was able to bear weight but reports that her pain was severe with weight bearing today. She reports one episode of vomiting earlier today. She denies subjective fever and chills. She denies shortness of breath and chest pain. She denies palpitations. She reports that her swelling and erythema continue to improve. She reports that she has not had a bowel movement in three days but did start miralax yesterday. She has no other concerns at this time. She is tolerating PO intake well. Review of Systems Review of Systems: All systems reviewed & are unremarkable except as noted in HPI and below Exam Narrative: Exam Narrative: General: Well-developed and well-nourished 29 y.o. female who is lying in the semi-recumbent position in bed in no acute distress. HEENT: Normocephalic and atraumatic. Conjunctivae and lids normal. EOMI. Mucous membranes moist. Posterior pharynx without erythema or exudate. Neck: Supple without lymphadenopathy or masses. Cardiac: Regular rate and rhythm. S1 and S2 normal. Lungs: Effort normal. Lungs are clear to auscultation bilaterally. Abdomen: Appearance grossly normal. Bowel sounds are normoactive. Abdomen is soft, non-distended, and non-tender. Musculoskeletal: Edema to the left knee with small effusion appreciated surrounding t
[2019-12-28 14:00] VITALS: BP 131/75; PULSE 98; RESP 19; TEMP 37.2; O2SAT 100
[2019-12-28 16:18] LABS: Glucose Point of Care 181 (65-105)
[2019-12-28] MEDS: INSULIN GLARGINE (*BKC) 100 UNITS/ML 40 UNITS SUB-Q (18:22)
[2019-12-28 18:32] LABS: Glucose Point of Care 149 (65-105)
[2019-12-28] MEDS: polyethylene glycoL 3350 17 GM POWD.PACK PO (20:39)
[2019-12-28 20:59] LABS: Glucose Point of Care 203 (65-105)
[2019-12-28 21:33] VITALS: BP 107/64; PULSE 99; RESP 16; TEMP 37.3; O2SAT 100
[2019-12-28] MEDS: GABAPENTIN 300 MG CAPSULE PO (21:49)
[2019-12-29] MEDS: AMPICILLIN SODIUM/SULBACTAM 3 GM in SODIUM CHLORIDE 0.9% IV 100 ML IVPB ×3 (00:01→11:32)
[2019-12-29 05:50] VITALS: BP 106/69; PULSE 81; RESP 16; TEMP 36.7; O2SAT 94
[2019-12-29] MEDS: SODIUM CHLORIDE 0.9% IV 1,000 ML 100 ML IV CONT (06:06)
[2019-12-29 07:59] LABS: Glucose Point of Care 167 (65-105)
[2019-12-29] MEDS: INSULIN ASPART (*BKC) 100 UNITS/ML SUB-Q ×5 (08:01→16:55)
[2019-12-29] MEDS: ONDANSETRON INJ 4 MG/2 ML VIAL IV PUSH (08:04)
--- NOTE | 2019-12-29 08:26 | PM.IMPN ---
Progress Note: A&P Assessment and Plan (1) Cellulitis of knee, left: Code(s): L03.116 - Cellulitis of left lower limb Status: Acute Assessment and Plan: She developed erythema and edema of the left knee on 12/24/2019 after gardening, while on her knees in the dirt, and a cat scratch above her knee. T-max was 100.7? 12/26/2019 but has been afebrile >24 hours. Leukocytosis has resolved. CRP was elevated and is trending down and repeat labs for today are pending. Venous doppler was negative for DVT. Preliminary blood cultures reveal NGTD. She reports that her pain continues to improve and her ROM is improving. Swelling and erythema have also improved. She does have an effusion distal to the patella. Ortho is on board to determine whether to proceed with conservative vs. operative therapy. Ortho is on board and input is greatly appreciated. Will await further recommendations. Continue Unasyn and vancomycin. Dr. Billings with infectious disease has been consulted for further recommendations which are greatly appreciated. Await final blood cultures Continue analgesics PRN Continue to trend CRP Continue to elevate the extremity Continue to monitor (2) Type 1 diabetes mellitus: Qualifiers: Diabetes mellitus complication status: with other specified complication Qualified Code(s): E10.69 - Type 1 diabetes mellitus with other specified complication Code(s): E10.9 - Type 1 diabetes mellitus without complications Status: Acute Assessment and Plan: Patient has had type 1 diabetes since she has been 2 years old. It appears that she has been poorly controlled for some time. She states that her A1c is usually >12. She is established with an lpn or medical assistant. Updated A1c is 12.8%. Blood sugars are improving but are slightly above target with some readings in the low 200s. Continue basal insulin, will increase to 45 units Continue high dose sliding scale insulin, Accu-Cheks, and hypoglycemic protocol. Continue carb consistent diet She was evaluated by CDE She reports that she plans to get an insulin pump per endocrinology outpatient (3) Asthma: Qualifiers: Asthma severity: unspecified severity Asthma persistence: unspecified Asthma complication type: unspecified Qualified Code(s): J45.909 - Unspecified asthma, uncomplicated Code(s): J45.909 - Unspecified asthma, uncomplicated Status: Acute Assessment and Plan: Stable and not in acute exacerbation. Continue albuterol PRN Continue symbicort Continue to monitor respiratory status (4) Anemia: Qualifiers: Anemia type: unspecified type Qualified Code(s): D64.9 - Anemia, unspecified Code(s): D64.9 - Anemia, unspecified Status: Acute Assessment and Plan: The patient reports that she just finished her menstrual cycle. Hb was 9.3 and Hct 29.2 12/28/19. Labs from today are pending. Anemia is normocytic. She did receive fluids so dilution may be contributing. She also has a hx of asthma and T1DM so she may have a component of anemia of chronic disease. Iron studies, vitamin B12 and folate are pending, will await results Continue to monitor Additional Plan Will add colace scheduled and miralax BID PRN for constipation. Time Spent With Patient Time with patient: 15 - 25 minutes Subjective Date/time seen: 12/29/19 08:26 Interval history: Mrs. Timmons is seen and examined at bedside. She reports nausea today but denies vomiting. She had small bowel movement that was firm and hard and she feels much better today. She reports that she ambulated around the room with minimal pain. Her ROM and swelling continue to improve. She denies subjective fever and chills. She reports a mild frontal headache. She denies chest pain and shortness of breath. She denies abdominal pain. She does feel bloated with her constipation. She has no other concerns at this time. Review
[2019-12-29 09:07] LABS: Basophils Percent Auto 0.3 % (0.2-1.2); Eosinophils Absolute Auto 0.1 K/mm3 (0-0.3); Eosinophils Percent Auto 2.3 % (0-4.4); Hematocrit 31.5 % (37.0-47.0); Hemoglobin 9.9 g/dL (12.0-15.0); Immature Granulocyte Absolute 0.02 K/mm3 (0.00-0.031); Immature Granulocyte Percent A 0.3 % (0-0.5); Lymphocytes Absolute Auto 1.32 K/mm3 (0.9-3.2); Lymphocytes Percent Auto 21.8 % (18.3-44.2); Mean Corpuscular HGB Conc 31.4 g/dl (32-36); Mean Corpuscular Hemoglobin 28.6 pg (26-34); Mean Platelet Volume 10.1 fl (7.4-10.4); Monocytes Absolute Auto 0.4 K/mm3 (0.1-0.6); Monocytes Percent Auto 6.4 % (2.6-8.5); Neutrophils Absolute Auto 4.2 K/mm3 (1.3-6.7); Neutrophils Percent Auto 68.9 % (45.5-73.1); Platelet Count Result 268 k/mm3 (150-375); Red Blood Count 3.46 M/mm3 (4.2-5.4); White Blood Count 6.1 K/mm3 (4.5-10.0)
[2019-12-29 09:23] LABS: Alanine Aminotransferase 12 U/L (4-35); Albumin Level 3.5 g/dL (3.5-5.1); Alkaline Phosphatase 64 U/L (38-126); Aspartate Amino Transferase 18 U/L (14-36); Bilirubin,Total < 0.1 mg/dL (0.2-1.3); Blood Urea Nitrogen 5 mg/dL (7-17); CRP 6.9 mg/dL (<1.0); Calcium 8.8 mg/dL (8.4-10.2); Carbon Dioxide 28 mmol/L (22-30); Chloride 102 mmol/L (98-107); Estimated CRCL calculation 143 ml/min; Estimated Glomerular Filt Rate > 60; Glucose 120 mg/dL (65-105); Potassium 3.9 mmol/L (3.4-5.0); Sodium 136 mmol/L (137-145)
[2019-12-29 09:28] LABS: Transferrin 229 mg/dL (206-381)
[2019-12-29 09:33] LABS: Iron 21 ug/dL (37-170)
[2019-12-29 09:43] LABS: Percent Iron Saturation 7 % (20-50)
[2019-12-29 09:44] LABS: Vancomycin Trough < 5.0 ug/mL (10.0-20.0)
[2019-12-29] MEDS: DOCUSATE SODIUM 100 MG CAPSULE PO ×2 (10:04→21:04)
[2019-12-29] MEDS: FLUOXETINE HCL 20 MG CAP 40 MG PO (10:04)
[2019-12-29] MEDS: GABAPENTIN 300 MG CAPSULE PO ×2 (10:05→13:58)
[2019-12-29] MEDS: FLUTICASONE PROPIONATE 0.05% NA SPR 16 GM BTL (*BKC) 1 SPRAY NASAL (10:05)
[2019-12-29] MEDS: IBUPROFEN 400 MG TABLET PO ×2 (10:05→17:00)
[2019-12-29] MEDS: LORATADINE 10 MG TABLET PO (10:05)
[2019-12-29] MEDS: polyethylene glycoL 3350 17 GM POWD.PACK PO (10:07)
[2019-12-29 10:29] LABS: Vitamin B12 > 1000.0 pg/mL (239-931)
[2019-12-29 11:35] LABS: Glucose Point of Care 239 (65-105)
--- NOTE | 2019-12-29 12:08 | WPDINFPN2 ---
Progress Note: A&P Assessment and Plan (1) Prepatellar bursitis: Qualifiers: Laterality: left Qualified Code(s): M70.42 - Prepatellar bursitis, left knee Code(s): M70.40 - Prepatellar bursitis, unspecified knee Status: Acute Assessment and Plan: 1. L knee prepatellar bursitis, skin wang, not from cats 2. 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 Repeat CRP. Subjective Date/time seen: 12/29/19 12:08 Objective Data Vital Signs Vital Signs: Vital Signs - 24 hr 12/28/19 14:00 12/28/19 21:33 12/29/19 05:50 Temperature 37.2 C 37.3 C 36.7 C Pulse Rate 98 99 81 Respiratory Rate 19 16 16 Blood Pressure 131/75 107/64 106/69 Pulse Oximetry 100 100 94 Intake/Output Intake/Output: Intake & Output 12/26/19 12/27/19 12/28/19 12/29/19 23:59 23:59 23:59 23:59 Intake Total 4320 3210 4660 2446 Output Total 2100 1999 3100 2200 Balance 2220 1210 1560 246 Meds/Results Medications: Active Medications Generic Name Dose Route Start Last Admin Trade Name Freq PRN Reason Stop Dose Admin Hydrocodone Bitart/Acetaminophen 1 tab 12/29/19 08:47 [place] 5-325 Mg PO Q6H PRN Pain Rated 6-10 Albuterol 2 puff 12/25/19 22:42 Proventil Hfa INHALATION QIDRT PRN Shortness Of Breath Budesonide/Formoterol Fumarate 2 puff 12/26/19 08:00 12/29/19 09:10 Symbicort 160-4.5 Mcg (*Sp) Inhaler INHALATION 2 puff Q12HRT JASON Administration Dextrose 12.5 gm 12/25/19 22:40 Dextrose 50% Syringe IV PUSH PRN PRN Hypoglycemia Protocol Docusate Sodium 100 mg 12/29/19 09:00 12/29/19 10:04 Colace Capsule PO 100 mg Q12HR JASON Administration Fluoxetine HCl 40 mg 12/26/19 09:00 12/29/19 10:04 Prozac PO 40 mg DAILY JASON Administration Fluticasone Propionate 1 spray 12/26/19 09:00 12/29/19 10:05 Flonase 0.05% Nasal [place] NASAL 1 spray DAILY JASON Administration Gabapentin 300 mg 12/25/19 22:42 12/29/19 10:05 Neurontin PO 300 mg TID PRN Administration NEUROPATHY PAIN Glucagon 1 mg 12/25/19 22:40 Glucagon For Inj IM PRN PRN Hypoglycemia Protocol Glucose 15 gm 12/25/19 22:40 Glutose 15 PO PRN PRN Hypoglycemia Protocol Dextrose 1,000 mls @ 100 mls/hr 12/25/19 22:40 Dextrose 5% 1,000 Ml IVPB PRN PRN Hypoglycemia Protocol Vancomycin HCl 1,000 mg in 250 mls @ 250 mls/hr 12/29/19 18:00 Vancomycin 1,000 Mg/D5w 250 Ml IVPB Q8H JASON Ibuprofen 400 mg 12/28/19 13:47 12/29/19 10:05 Motrin PO 400 mg Q6H PRN Administration Pain Rated 1-5 Insulin Aspart 4 - 8 units 12/26/19 08:00 12/29/19 11:36 Novolog SUB-Q 4 units TIDWM JASON Administration Protocol Insulin Aspart 5 units 12/26/19 08:00 12/29/19 11:37 Novolog SUB-Q 01/25/20 08:01 5 units TIDWM JASON Administration Insulin Glargine 45 units 12/29/19 08:45 Lantus SUB-Q QPM JASON Loratadine 10 mg 12/26/19 09:00 12/29/19 10:05 Claritin PO 01/25/20 09:01 10 mg DAILY JASON Administration Ondansetron HCl 4 mg 12/25/19 22:41 12/29/19 08:04 Zofran Inj IV PUSH 4 mg Q6H PRN Administration Nausea And Vomiting Polyethylene Glycol 17 gm 12/29/19 08:42 12/29/19 10:07 Miralax PO 17 gm BID PRN Administration Constipation Radiology Results: ITS Impressions Knee X-Ray 12/25/19 18:45 IMPRESSION: 1: No acute bone or joint abnormality. 2: Small joint effusion. Venous Doppler Study 12/27/19 08:29 IMPRESSION: 1. No deep venous thrombosis. Labs Labs: Laboratory Results - last 24 hr 12/28/19 12/28/1920 16:15 18:21 20:36 WBC RBC Hgb Hct MCV MCH MCHC RDW Plt Count MPV Immature Gran % (Auto) Neut % (Auto) Lymph % (Auto) [place] % (Auto) Eos % (Auto) Baso % (Auto) Lymph #
[2019-12-29 14:00] VITALS: BP 119/71; PULSE 95; RESP 18; TEMP 37.2; O2SAT 100
[2019-12-29 17:22] LABS: Glucose Point of Care 270 (65-105)
--- NOTE | 2019-12-29 17:46 | CONS_ITS ---
DATE OF CONSULTATION: 12/29/2019 REASON FOR CONSULTATION: Left knee prepatellar bursitis. HISTORY OF PRESENT ILLNESS: The patient is a 29-year-old female with type 1 diabetes mellitus. Her Accu-Cheks at best were in the 200 range and she is working with her coating manager about an insulin pump and also adjusting her insulin dosing. She has had previous soft tissue infection of the right forearm some years ago, but otherwise no skin infection that she is aware of in the past. She has had no previous surgeries or major trauma to the left lower extremity. She began feeling ill about 2 days prior to admission with discomfort in the left knee and a sensation of swelling and symptoms worsened over the next 2 days. On day of admission, she also noted nausea and vomiting. Her left calf also began to swell up and she noted erythema over the anterior knee. She presented to the emergency room, she has been on ampicillin, sulbactam, and vancomycin, now day 5. Consultation requested. Dr. Huggins is following, but the patient not yet required surgical intervention. 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 On the day of admission, she was at her relative's house moving furniture and also planted in the garden, this made her knee much more painful. Range of motion has also been diminished. In the last 2 days, her pain and inability to bear weight are noticeably better, but not back to normal. She also notes that the redness is improved. She was on azithromycin earlier this year for bronchitis, but not in the last 4 to 6 weeks. She has been on no immunosuppressants. She does tend to get vaginal yeast infections with antibiotics, but no other side effects in general, and no vaginal itching or discharge currently. The patient does have a cat and a kitten at home, and one of the kittens scratched her in the anterior left mid thigh, but otherwise no trauma to the knee area that she is aware of. HABITS: No tobacco. No alcohol. PRESENT MEDICATIONS: List reviewed. No immunosuppressants systemically. ALLERGIES: LATEX CAUSES SWELLING. PAST MEDICAL HISTORY: , cholecystectomy, seasonal allergies, nasal fracture when she was a child at the bridge of the nose, IBS, asthma, and past depression. FAMILY HISTORY: Depression and ADD. SOCIAL HISTORY: She is a single, 7-year-old daughter. Lives locally. Works as above. REVIEW OF SYSTEMS: Musculoskeletal, constitutional, GI, respiratory, skin otherwise negative. PHYSICAL EXAMINATION: GENERAL: This is a young female appears her actual age. No acute distress. VITAL SIGNS: Temperature on arrival was normal, but early on the T-max 38.2, and she is now afebrile consistently, 106/69, 81, 16, 94% room air. SKIN: No generalized rashes. Warm and dry. Tattoo right forearm. NODES: She has a 1 cm nontender lymph node in the left inguinal chain. No cervical adenopathy. EENT: Conjunctivae are normal. No icterus. No petechiae. Moist mucous membranes. NECK: No meningismus, mass or tenderness. LUNGS: Clear to auscultation and percussion. CARDIAC: Regular rate and rhythm. No murmur, gallop, or rub. Pulses are 2+ include popliteal, dorsalis pedis. ABDOMEN: Soft, nondistended. No organomegaly. No masses. Scaphoid. EXTREMITIES: 1+ nonpitting edema of the distal left leg not including the foot. No clubbing. No cyanosis. No calf tenderness. No venous varicosities. Over the aforementioned left thigh, she has 2 subcentimeter abrasions without surrounding erythema, tenderness or warmth. MUSCULOSKELETAL: Left anterior knee with erythema and mild warmth extending to the medial patella area as well as lateral. There is mildly diminished range of motion of the left knee in a flexion.
[2019-12-29] MEDS: INSULIN GLARGINE (*BKC) 100 UNITS/ML 45 UNITS SUB-Q (18:00)
[2019-12-29 21:43] VITALS: BP 118/64; PULSE 93; RESP 16; TEMP 36.6; O2SAT 97
[2019-12-29 21:58] LABS: Glucose Point of Care 199 (65-105)
[2019-12-30] MEDS: IBUPROFEN 400 MG TABLET PO ×3 (01:53→17:40)
[2019-12-30] MEDS: GABAPENTIN 300 MG CAPSULE PO ×4 (01:54→20:08)
[2019-12-30 05:37] VITALS: BP 165/75; PULSE 69; RESP 16; TEMP 36.3; O2SAT 100
[2019-12-30 05:40] LABS: Estimated CRCL calculation 143 ml/min; Estimated Glomerular Filt Rate > 60
[2019-12-30 05:47] LABS: CRP 5.7 mg/dL (<1.0)
[2019-12-30 07:45] LABS: Glucose Point of Care 89 (65-105)
[2019-12-30 08:07] LABS: Hemoglobin 10.1 g/dL (12.0-15.0); Mean Corpuscular HGB Conc 31.6 g/dl (32-36); Mean Corpuscular Hemoglobin 28.2 pg (26-34); Mean Corpuscular Volume 89.4 fl (80-100); Mean Platelet Volume 9.9 fl (7.4-10.4); Platelet Count Result 319 k/mm3 (150-375); Red Blood Count 3.58 M/mm3 (4.2-5.4); Red Cell Distribution Width 11.9 % (11.5-14.5); White Blood Count 5.9 K/mm3 (4.5-10.0)
[2019-12-30] MEDS: FLUOXETINE HCL 20 MG CAP 40 MG PO (08:11)
[2019-12-30] MEDS: LORATADINE 10 MG TABLET PO (08:13)
[2019-12-30 08:15] LABS: Blood Urea Nitrogen 8 mg/dL (7-17); Calcium 9.2 mg/dL (8.4-10.2); Carbon Dioxide 31 mmol/L (22-30); Chloride 103 mmol/L (98-107); Estimated CRCL calculation 143 ml/min; Estimated Glomerular Filt Rate > 60; Glucose 88 mg/dL (65-105); Potassium 4.4 mmol/L (3.4-5.0); Sodium 136 mmol/L (137-145)
[2019-12-30] MEDS: DOCUSATE SODIUM 100 MG CAPSULE PO ×2 (08:21→20:08)
[2019-12-30] MEDS: INSULIN ASPART (*BKC) 100 UNITS/ML 8 UNITS SUB-Q ×2 (08:23→12:04)
--- NOTE | 2019-12-30 08:54 | PM.PNORT ---
Progress Note: A&P Assessment and Plan (1) Prepatellar bursitis: Qualifiers: Laterality: left Qualified Code(s): M70.42 - Prepatellar bursitis, left knee Code(s): M70.40 - Prepatellar bursitis, unspecified knee Status: Acute Assessment and Plan: Appreciate ID Consult. CRP continues to trend down, 5.7. Continue pain control. Continue IV antibiotics per ID. WBAT LLE. Ice/compression LEFT Knee. Will continue to follow. Subjective Subjective Date/Time Seen: 12/30/19 08:54 Patient sitting up in bed, eating breakfast. Tolerating activity well. Patient reports marked improvement in pain. Review of Systems Review of Systems: All systems reviewed & are unremarkable except as noted in HPI and below Constitutional: Constitutional: Denies chills, Denies fatigue, Denies fever(s), Denies lethargy and Denies weakness Cardiovascular: Cardiovascular: Denies chest pain and Denies lightheadedness Respiratory: Respiratory: Denies cough, Denies dyspnea and Denies wheezing Gastrointestinal: Gastrointestinal: Denies abdominal pain, Denies bloating, Denies diarrhea, Denies nausea and Denies vomiting Musculoskeletal: Comments: Left knee pain/swelling Exam Const: General: comfortable and no acute distress Resp: Effort & Inspection: normal respiratory effort Cardio: Rate: regular rate Rhythm: regular rhythm Skin: General skin exam: erythema (left knee ) Wounds: no wounds Neuro: General: No gait normal (pain left knee ) Cognition (Neuro): normal cognition Sensory Exam: normal sensation Extrem: Right lower extremity: normal to inspection, full ROM, normal capillary refill, knee Details: normal to inspection and normal ROM; no tenderness and no swelling, lower leg Details: normal to inspection, ankle Details: normal to inspection; no tenderness and no swelling and foot Details: normal capillary refill and normal to inspection; no tenderness Left lower extremity: normal capillary refill, knee Details: tenderness Location: of the pre-patellar area, swelling (no obvious knee joint effusion at this time. ) Location: of the pre-patellar area (improving ), abnormal ROM Details: pain with active ROM Details: with flexion (improving ) and with range as follows (AROM: 0-120 (improving) ); no pain with passive ROM and warmth (pre-patellar bursa); no abrasions, no lacerations, no ecchymosis and no crepitus and foot (2+ pedal pulses. +ankle dorsiflexion/plantarflexion ) Psych: Mental Status: mental status grossly normal Affect: normal affect Objective Data Vital Signs Vital Signs: Vital Signs - 24 hr 12/29/19 14:00 12/29/19 21:43 12/30/19 05:37 Temperature 37.2 C 36.6 C 36.3 C L Pulse Rate 95 93 69 Respiratory Rate 18 16 16 Blood Pressure 119/71 118/64 165/75 H Pulse Oximetry 100 97 100 Intake/Output Intake/Output: Intake & Output 12/27/19 12/28/19 12/29/19 12/30/19 23:59 23:59 23:59 23:59 Intake Total 3210 4660 3816 990 Output Total 1999 3100 3200 800 Balance 1210 1560 616 190 Meds/Results Medications: Active Medications Generic Name Dose Route Start Last Admin Trade Name Freq PRN Reason Stop Dose Admin Hydrocodone Bitart/Acetaminophen 1 tab 12/29/19 08:47 [place] 5-325 Mg PO Q6H PRN Pain Rated 6-10 Albuterol 2 puff 12/25/19 22:42 Proventil Hfa INHALATION QIDRT PRN Shortness Of Breath Budesonide/Formoterol Fumarate 2 puff 12/26/19 08:00 12/29/19 19:54 Symbicort 160-4.5 Mcg (*Sp) Inhaler INHALATION 2 puff Q12HRT JASON Administration Dextrose 12.5 gm 12/25/19 22:40 Dextrose 50% Syringe IV PUSH PRN PRN Hypoglycemia Protocol Docusate Sodium 100 mg 12/29/19 09:00 12/30/19 08:21 Colace Capsule PO 100 mg Q12HR JASON Administration Fluoxetine HCl 40 mg 12/26/19 09:00 12/30/19 08:11 Prozac PO 40 mg DAILY JASON Administration Fluticasone Propionate 1 spray 12/26/19 09:00 12/29/19 10:05 Flonase 0.
[2019-12-30] MEDS: FLUTICASONE PROPIONATE 0.05% NA SPR 16 GM BTL (*BKC) 1 SPRAY NASAL (10:16)
[2019-12-30 12:02] LABS: Glucose Point of Care 128 (65-105)
--- NOTE | 2019-12-30 12:31 | WPDINFPN2 ---
Progress Note: A&P Assessment and Plan (1) Prepatellar bursitis: Qualifiers: Laterality: left Qualified Code(s): M70.42 - Prepatellar bursitis, left knee Code(s): M70.40 - Prepatellar bursitis, unspecified knee Status: Acute Assessment and Plan: 1. L knee prepatellar bursitis, skin wang, not from cats, CRP down another point 2. 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 PharmD dosing Subjective Date/time seen: 12/30/19 12:31 Interval history: dizzy so not up as much as yesterday, but pain and swelling improving Exam Narrative: Exam Narrative: afebrile Const: General: no acute distress Skin: General skin exam: normal color and no rashes or lesions noted Extrem: Other: left anterior knee erythema about the same, mild edema, non tender, no drainage, good rom Objective Data Vital Signs Vital Signs: Vital Signs - 24 hr 12/29/19 14:00 12/29/19 21:43 12/30/19 05:37 Temperature 37.2 C 36.6 C 36.3 C L Pulse Rate 95 93 69 Respiratory Rate 18 16 16 Blood Pressure 119/71 118/64 165/75 H Pulse Oximetry 100 97 100 Intake/Output Intake/Output: Intake & Output 12/27/19 12/28/19 12/29/19 12/30/19 23:59 23:59 23:59 23:59 Intake Total 3210 4660 3816 990 Output Total 1999 3100 3200 800 Balance 1210 1560 616 190 Meds/Results Medications: Active Medications Generic Name Dose Route Start Last Admin Trade Name Freq PRN Reason Stop Dose Admin Hydrocodone Bitart/Acetaminophen 1 tab 12/29/19 08:47 [place] 5-325 Mg PO Q6H PRN Pain Rated 6-10 Albuterol 2 puff 12/25/19 22:42 Proventil Hfa INHALATION QIDRT PRN Shortness Of Breath Budesonide/Formoterol Fumarate 2 puff 12/26/19 08:00 12/30/19 09:20 Symbicort 160-4.5 Mcg (*Sp) Inhaler INHALATION 2 puff Q12HRT JASON Administration Dextrose 12.5 gm 12/25/19 22:40 Dextrose 50% Syringe IV PUSH PRN PRN Hypoglycemia Protocol Docusate Sodium 100 mg 12/29/19 09:00 12/30/19 08:21 Colace Capsule PO 100 mg Q12HR JASON Administration Fluoxetine HCl 40 mg 12/26/19 09:00 12/30/19 08:11 Prozac PO 40 mg DAILY JASON Administration Fluticasone Propionate 1 spray 12/26/19 09:00 12/30/19 10:16 Flonase 0.05% Nasal Justice NASAL 1 spray DAILY JASON Administration Gabapentin 300 mg 12/25/19 22:42 12/30/19 12:07 Neurontin PO 300 mg TID PRN Administration NEUROPATHY PAIN Glucagon 1 mg 12/25/19 22:40 Glucagon For Inj IM PRN PRN Hypoglycemia Protocol Glucose 15 gm 12/25/19 22:40 Glutose 15 PO PRN PRN Hypoglycemia Protocol Dextrose 1,000 mls @ 100 mls/hr 12/25/19 22:40 Dextrose 5% 1,000 Ml IVPB PRN PRN Hypoglycemia Protocol Vancomycin HCl 1,000 mg in 250 mls @ 250 mls/hr 12/29/19 18:00 12/30/19 10:15 Vancomycin 1,000 Mg/D5w 250 Ml IVPB 250 mls/hr Q8H JASON Administration Ibuprofen 400 mg 12/28/19 13:47 12/30/19 08:22 Motrin PO 400 mg Q6H PRN Administration Pain Rated 1-5 Insulin Aspart 4 - 8 units 12/26/19 08:00 12/30/19 12:05 Novolog SUB-Q Not Given TIDWM [facility] Protocol Insulin Aspart 5 units 12/30/19 17:00 Novolog SUB-Q 01/25/20 17:01 TIDWM [facility] Insulin Glargine 50 units 12/30/19 18:00 Lantus SUB-Q QPM [facility] Loratadine 10 mg 12/26/19 09:00 12/30/19 08:13 Claritin PO 01/25/20 09:01 10 mg DAILY JASON Administration Ondansetron HCl 4 mg 12/25/19 22:41 12/29/19 08:04 Zofran Inj IV PUSH 4 mg Q6H PRN Administration Nausea And Vomiting Polyethylene Glycol 17 gm 12/29/19 08:42 12/29/19 10:07 Miralax PO 17 gm BID PRN Administration Constipation Radiology Results: ITS Impressions Knee X-Ray 12/25/19 18:45 IMPRESSION: 1: No acute bone or joint abnormality. 2: Small joint effusion. Venous Doppler Study 12/27/19 08:2
--- NOTE | 2019-12-30 12:40 | PM.IMPN ---
Progress Note: A&P Assessment and Plan (1) Prepatellar bursitis: Qualifiers: Laterality: left Qualified Code(s): M70.42 - Prepatellar bursitis, left knee Code(s): M70.40 - Prepatellar bursitis, unspecified knee Status: Acute Assessment and Plan: She developed erythema and edema of the left knee on 12/24/2019 after gardening, while on her knees in the dirt, and a cat scratch above her knee. T-max was 100.7? 12/26/2019 but has been afebrile >24 hours. Leukocytosis has resolved. CRP was elevated and continues to trend down. CRP is 5.7 today (initially 16.3). Leukocytosis has resolved. Venous doppler was negative for DVT. Preliminary blood cultures reveal NGTD. She reports that her pain continues to improve and her ROM is improving. Swelling and erythema have also improved. She does have an effusion distal to the patella. Ortho is on board to determine whether to proceed with conservative vs. operative therapy. Infectious disease is on board as well and recommendations are greatly appreciated. Ortho is on board and input is greatly appreciated. Dr. Billings is on board. Unasyn was discontinued. Plan to continue vancomycin for at least 1 more day and transition to a PO regimen at discharge. Await final blood cultures Continue analgesics PRN, ice/compression Continue to trend CRP Continue to elevate the extremity Continue to monitor (2) Cellulitis of knee, left: Code(s): L03.116 - Cellulitis of left lower limb Status: Acute Assessment and Plan: As above. Surrounding cellulitis has improved. At this time, she only has erythema over the prepatellar area. (3) Type 1 diabetes mellitus: Qualifiers: Diabetes mellitus complication status: with other specified complication Qualified Code(s): E10.69 - Type 1 diabetes mellitus with other specified complication Code(s): E10.9 - Type 1 diabetes mellitus without complications Status: Acute Assessment and Plan: Patient has had type 1 diabetes since she has been 2 years old. It appears that she has been poorly controlled for some time. She states that her A1c is usually >12. She is established with an cook taco. Updated A1c is 12.8%. Blood sugars are improving with insulin adjustments. Continue 45 units of lantus Continue premeal insulin at 5 units Continue high dose sliding scale insulin, Accu-Cheks, and hypoglycemic protocol. Continue carb consistent diet She was evaluated by CDE She reports that she plans to get an insulin pump per endocrinology outpatient (4) Asthma: Qualifiers: Asthma severity: unspecified severity Asthma persistence: unspecified Asthma complication type: unspecified Qualified Code(s): J45.909 - Unspecified asthma, uncomplicated Code(s): J45.909 - Unspecified asthma, uncomplicated Status: Acute Assessment and Plan: Stable and not in acute exacerbation. Continue albuterol PRN Continue symbicort Continue to monitor respiratory status (5) Anemia: Qualifiers: Anemia type: unspecified type Qualified Code(s): D64.9 - Anemia, unspecified Code(s): D64.9 - Anemia, unspecified Status: Acute Assessment and Plan: The patient reports that she just finished her menstrual cycle. Hb was 10.1 and Hct 32 12/30/19. Anemia is normocytic. Iron was low at 21 and % saturation is low at 7 with normal ferritin. I suspect this is due to her menstrual bleeding. She received fluids so dilution may be contributing. She also has a hx of asthma and T1DM so she may have a component of anemia of chronic disease. Vitamin B12 and folate are sufficient. Continue to monitor Additional Plan Continue colace scheduled and miralax BID PRN as she is still constipated although did have two firm bowel movements yesterday. Time Spent With Patient Time with patient: 15 - 25 minutes Subjective Date/time seen: 12/30/19 1
[2019-12-30 13:41] VITALS: BP 110/72; PULSE 99; RESP 18; TEMP 36.8; O2SAT 97
[2019-12-30 13:59] LABS: Glucose Point of Care 67 (65-105)
[2019-12-30 14:30] LABS: Glucose Point of Care 143 (65-105)
[2019-12-30 16:40] LABS: Glucose Point of Care 199 (65-105)
[2019-12-30] MEDS: INSULIN ASPART (*BKC) 100 UNITS/ML SUB-Q (17:27)
[2019-12-30] MEDS: INSULIN GLARGINE (*BKC) 100 UNITS/ML 35 UNITS SUB-Q (17:36)
[2019-12-30 18:11] LABS: Vancomycin Trough 7.7 ug/mL (10.0-20.0)
[2019-12-30 21:13] LABS: Glucose Point of Care 228 (65-105)
[2019-12-30 21:48] VITALS: BP 116/74; PULSE 97; RESP 16; TEMP 36.5; O2SAT 99
[2019-12-31 05:09] LABS: Hematocrit 31.5 % (37.0-47.0); Hemoglobin 10.1 g/dL (12.0-15.0); Mean Corpuscular HGB Conc 32.1 g/dl (32-36); Mean Corpuscular Hemoglobin 28.4 pg (26-34); Mean Corpuscular Volume 88.5 fl (80-100); Mean Platelet Volume 10.2 fl (7.4-10.4); Platelet Count Result 336 k/mm3 (150-375); Red Blood Count 3.56 M/mm3 (4.2-5.4); Red Cell Distribution Width 11.9 % (11.5-14.5); White Blood Count 7.1 K/mm3 (4.5-10.0)
[2019-12-31 05:35] LABS: Blood Urea Nitrogen 9 mg/dL (7-17); CRP 3.2 mg/dL (<1.0); Carbon Dioxide 29 mmol/L (22-30); Chloride 101 mmol/L (98-107); Estimated CRCL calculation 118 ml/min; Estimated Glomerular Filt Rate > 60; Glucose 199 mg/dL (65-105); Sodium 137 mmol/L (137-145)
[2019-12-31 05:50] VITALS: BP 98/52; PULSE 88; RESP 16; TEMP 36.7; O2SAT 94
[2019-12-31 07:38] LABS: Glucose Point of Care 256 (65-105)
[2019-12-31] MEDS: INSULIN ASPART (*BKC) 100 UNITS/ML SUB-Q ×5 (07:43→17:16)
[2019-12-31] MEDS: LORATADINE 10 MG TABLET PO (07:45)
[2019-12-31] MEDS: FLUTICASONE PROPIONATE 0.05% NA SPR 16 GM BTL (*BKC) 1 SPRAY NASAL (07:45)
[2019-12-31] MEDS: FLUOXETINE HCL 20 MG CAP 40 MG PO (07:45)
[2019-12-31] MEDS: DOCUSATE SODIUM 100 MG CAPSULE PO (07:49)
[2019-12-31] MEDS: IBUPROFEN 400 MG TABLET PO (07:49)
--- NOTE | 2019-12-31 09:30 | PM.PNORT ---
Progress Note: A&P Assessment and Plan (1) Prepatellar bursitis: Qualifiers: Laterality: left Qualified Code(s): M70.42 - Prepatellar bursitis, left knee Code(s): M70.40 - Prepatellar bursitis, unspecified knee Status: Acute Assessment and Plan: CRP continues to trend down, 3.2. Pain improved. Continue pain control. Continue antibiotics per ID. WBAT LLE. Ice/compression LEFT Knee. Will continue to follow. Will plan for outpatient follow up pending discharge. Subjective Subjective Date/Time Seen: 12/31/19 09:30 Patient sitting up in bed. Patient wants to go home. Patient reports marked improvement in pain. Able to fully bend knee at this time. She also feels her swelling has dramatically improved. Review of Systems Review of Systems: All systems reviewed & are unremarkable except as noted in HPI and below Constitutional: Constitutional: Denies chills, Denies fatigue, Denies fever(s), Denies lethargy and Denies weakness Cardiovascular: Cardiovascular: Denies chest pain and Denies lightheadedness Respiratory: Respiratory: Denies cough, Denies dyspnea and Denies wheezing Gastrointestinal: Gastrointestinal: Denies abdominal pain, Denies bloating, Denies diarrhea, Denies nausea and Denies vomiting Musculoskeletal: Comments: Left knee pain/swelling Exam Const: General: comfortable and no acute distress Resp: Effort & Inspection: normal respiratory effort Cardio: Rate: regular rate Rhythm: regular rhythm Skin: General skin exam: erythema (left knee ) Wounds: no wounds Neuro: General: No gait normal (pain left knee ) Cognition (Neuro): normal cognition Sensory Exam: normal sensation Extrem: Right lower extremity: normal to inspection, full ROM, normal capillary refill, knee Details: normal to inspection and normal ROM; no tenderness and no swelling, lower leg Details: normal to inspection, ankle Details: normal to inspection; no tenderness and no swelling and foot Details: normal capillary refill and normal to inspection; no tenderness Left lower extremity: normal capillary refill, knee Details: tenderness Location: of the pre-patellar area, swelling (no obvious knee joint effusion at this time. ) Location: of the pre-patellar area (improving ), abnormal ROM Details: pain with active ROM Details: with flexion (improving ) and with range as follows (AROM: 0-120 (improving) ); no pain with passive ROM and warmth (pre-patellar bursa); no abrasions, no lacerations, no ecchymosis and no crepitus and foot (2+ pedal pulses. +ankle dorsiflexion/plantarflexion ) Psych: Mental Status: mental status grossly normal Affect: normal affect Objective Data Vital Signs Vital Signs: Vital Signs - 24 hr 12/30/19 13:41 12/30/19 21:48 12/31/19 05:50 Temperature 36.8 C 36.5 C 36.7 C Pulse Rate 99 97 88 Respiratory Rate 18 16 16 Blood Pressure 110/72 116/74 98/52 L Pulse Oximetry 97 99 94 Intake/Output Intake/Output: Intake & Output 12/28/19 12/29/19 12/30/19 12/31/19 23:59 23:59 23:59 23:59 Intake Total 4660 3816 2760 450 Output Total 3100 3200 1400 1000 Balance 2561 197 5407 -550 Meds/Results Medications: Active Medications Generic Name Dose Route Start Last Admin Trade Name Freq PRN Reason Stop Dose Admin Hydrocodone Bitart/Acetaminophen 1 tab 12/29/19 08:47 [place] 5-325 Mg PO Q6H PRN Pain Rated 6-10 Albuterol 2 puff 12/25/19 22:42 Proventil Hfa INHALATION QIDRT PRN Shortness Of Breath Budesonide/Formoterol Fumarate 2 puff 12/26/19 08:00 12/31/19 07:51 Symbicort 160-4.5 Mcg (*Sp) Inhaler INHALATION 2 puff Q12HRT JASON Administration Dextrose 12.5 gm 12/25/19 22:40 Dextrose 50% Syringe IV PUSH PRN PRN Hypoglycemia Protocol Docusate Sodium 100 mg 12/29/19 09:00 12/31/19 07:49 Colace Capsule PO 100 mg Q12HR JASON Administration Fluoxetine HCl 40 mg 12/26/19 09:00 12/31/19 07:45 Prozac PO
[2019-12-31] MEDS: GABAPENTIN 300 MG CAPSULE PO (10:54)
[2019-12-31 11:23] LABS: Glucose Point of Care 287 (65-105)
[2019-12-31 14:00] VITALS: BP 95/78; PULSE 95; RESP 16; TEMP 37; O2SAT 100
[2019-12-31 16:28] LABS: Glucose Point of Care 100 (65-105)
[2019-12-31] MEDS: INSULIN GLARGINE (*BKC) 100 UNITS/ML 35 UNITS SUB-Q (17:17)
--- NOTE | 2019-12-31 18:46 | PM.DS ---
DS: Admitting Diagnosis Admitting Diagnosis Admitting Diagnosis: Cellulitis of left lower limb DS: Discharge Diagnosis Discharge Diagnosis (1) Prepatellar bursitis: Qualifiers: Laterality: left Qualified Code(s): M70.42 - Prepatellar bursitis, left knee Code(s): M70.40 - Prepatellar bursitis, unspecified knee Status: Acute (2) Cellulitis of knee, left: Code(s): L03.116 - Cellulitis of left lower limb Status: Resolved (3) Type 1 diabetes mellitus: Qualifiers: Diabetes mellitus complication status: with other specified complication Qualified Code(s): E10.69 - Type 1 diabetes mellitus with other specified complication Code(s): E10.9 - Type 1 diabetes mellitus without complications Status: Chronic (4) Asthma: Qualifiers: Asthma severity: unspecified severity Asthma persistence: unspecified Asthma complication type: unspecified Qualified Code(s): J45.909 - Unspecified asthma, uncomplicated Code(s): J45.909 - Unspecified asthma, uncomplicated Status: Chronic (5) Anemia: Qualifiers: Anemia type: unspecified type Qualified Code(s): D64.9 - Anemia, unspecified Code(s): D64.9 - Anemia, unspecified Status: Acute DS: Summary Hospital Course Reason for hospitalization: Left knee pain and erythema Hospital Course: Mrs. Timmons is a 29 y.o. female with PMH significant for type 1 diabetes mellitus diagnosed at age 3, asthma, and depression who presented to the ED 12/25/19 with c/o erythema and edema of the left knee which developed after gardening, while on her knees in the dirt. She also reported a cat scratch above her left knee knee. Initial workup in the ED revealed WBC 11,800, Hb 11.4, Hct 36.1, platelets 232, sodium 133, chloride 96, glucose 640, CRP 16.3, and right knee xray with small effusion. Orthopedic surgery was consulted and she was admitted to the hospitalist service. She was treated with IV unasyn and vancomycin. Blood cultures were obtained and reveal NGTD. Orthopedic surgery recommended continued IV antibiotic therapy and close monitoring to ensure she did not develop an abscess. Her leukocytosis and fever resolved. CRP trended down. Venous doppler was performed due to LLE edema and was negative for DVT. Her pain and swelling continued to improve. Infectious disease was consulted and recommended discontinuation of unasyn. She was treated with 7 days of IV vancomycin and discharged on PO doxycycline for 7 days per ID recommendations. Her blood sugars were elevated. I spoke with her energy consultant who recommended we keep her basal insulin at her current dose of 35 units and he would see her in follow-up outpatient for better glycemic control. She was encouraged to do strict carb counting and adhere to her insulin regimen per endocrinology. She also met with the clinical family educator. She is planning to get an insulin pump in the near future. She had a mild anemia which was presumed to be due to her menstrual cycle which she was on prior to and during her admission. She was able to walk without significant pain and requested to go home. Her pain was well-controlled. Orthopedic surgery recommended continued antibiotic therapy with outpatient follow-up in 1 week. She was advised to follow-up with her PCP and endocrinology. She was discharged in stable condition on the afternoon of 12/31/19. Status at Discharge Functional status at discharge: independent ambulation Overall status at discharge: patient is back to baseline Time Spent with Patient Time attestation: Total time spent providing and/or coordinating discharge services: 35 minutes Exam Narrative: Exam Narrative: General:Well-developed and well-nourished 29 y.o. female lying in the semi-recumbent position in bed in no acute distress watching TV. HEENT: Normocephalic and atraumatic. EOMI. Mucous membranes moist. Neck: Supple without lymphadenopathy or masses. Cardiac:
--- NOTE | 2020-01-05 10:43 | PC.NURSE ---
blood cx are negative.
== END 2019-12-31 18:34 | disposition home or self-care (01) | DRG 351 ==
LOC: ANHED 18:59 → ANH2MED 19:29
PROVIDERS: Internal Medicine Infectious Disease; Physician Assistant; Admitting Provider Family Medicine; Emergency Provider Emergency Medicine; PCP Emergency Medicine; Visit Provider Family Medicine
DX: M70.42 Prepatellar bursitis, left knee (principal); L03.116 Cellulitis of left lower limb; W55.03XA Scratched by cat, initial encounter; J45.909 Unspecified asthma, uncomplicated; K58.9 Irritable bowel syndrome, unspecified; E10.42 Type 1 diabetes mellitus with diabetic polyneuropathy; E10.65 Type 1 diabetes mellitus with hyperglycemia; F32.9 Major depressive disorder, single episode, unspecified; F41.9 Anxiety disorder, unspecified; D64.9 Anemia, unspecified; Z90.49 Acquired absence of other specified parts of digestive tract; D63.8 Anemia in other chronic diseases classified elsewhere
CPT/HCPCS: 36415; 73562; 80048; 80053; 80202; 81001; 81025; 82565; 82607; 82728; 82746; 82948; 83036; 83540; 83550; 83735; 84466; 84550; 85025; 85027; 85652; 86140; 87040; 93970; 94640; 96361; 96365; 96375; 96376; 99285; A9270; J0295; J1170; J1815; J2405; J3010; J3370; J7030; J7120

== ENCOUNTER 2020-05-17 10:29 | Emergency (ER) | payer OTHER, SELFPAY ==
[2020-05-17 10:40] VITALS: BP 119/76; PULSE 104; RESP 16; TEMP 36.7; O2SAT 100
--- NOTE | 2020-05-17 11:01 | PC.NURSE ---
1052- pt dressed for external vaginal exam by provider.
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
== END 2020-05-17 11:10 | disposition home or self-care (01) ==
PROVIDERS: Emergency Provider Nurse Practitioner; PCP Emergency Medicine
DX: B37.3 Candidiasis of vulva and vagina (principal); J45.909 Unspecified asthma, uncomplicated; F32.9 Major depressive disorder, single episode, unspecified; F41.9 Anxiety disorder, unspecified; E10.42 Type 1 diabetes mellitus with diabetic polyneuropathy
CPT/HCPCS: 81003; 87086; 87088; 99213; G0463

== ENCOUNTER 2020-09-03 13:40 | Emergency (ER) | payer OTHER, SELFPAY ==
[2020-09-03 13:43] VITALS: BP 108/64; PULSE 100; RESP 20; TEMP 37.1; O2SAT 100
[2020-09-03 14:06] LABS: Basophils Percent Auto 0.6 % (0.2-1.2); Eosinophils Absolute Auto 0.2 K/mm3 (0-0.3); Eosinophils Percent Auto 3.7 % (0-4.4); Hematocrit 34.7 % (37.0-47.0); Hemoglobin 11.4 g/dL (12.0-15.0); Immature Granulocyte Absolute 0.01 K/mm3 (0.00-0.031); Immature Granulocyte Percent A 0.2 % (0-0.5); Lymphocytes Absolute Auto 2.34 K/mm3 (0.9-3.2); Lymphocytes Percent Auto 36.1 % (18.3-44.2); Mean Corpuscular HGB Conc 32.9 g/dl (32-36); Mean Corpuscular Hemoglobin 28.1 pg (26-34); Mean Corpuscular Volume 85.5 fl (80-100); Mean Platelet Volume 9.9 fl (7.4-10.4); Monocytes Absolute Auto 0.4 K/mm3 (0.1-0.6); Monocytes Percent Auto 5.6 % (2.6-8.5); Neutrophils Absolute Auto 3.5 K/mm3 (1.3-6.7); Neutrophils Percent Auto 53.8 % (45.5-73.1); Platelet Count Result 265 k/mm3 (150-375); Red Blood Count 4.06 M/mm3 (4.2-5.4); Red Cell Distribution Width 12.6 % (11.5-14.5); White Blood Count 6.5 K/mm3 (4.5-10.0)
[2020-09-03 14:11] LABS: Add Urine Microscopic? YES; Appearance Urine Clear (Clear); Bacteria Urine Trace /hpf; Bilirubin Urine Negative (Negative); Blood Urine Negative (Negative); Color Urine Straw (Yellow); Glucose Urine UA 3+ mg/dL (Negative); Ketones Urine Negative (Negative); Leukocyte Esterase Ur Negative LEU/UL (Negative); Mucus Urine Rare /lpf; Nitrate Urine Negative (Negative); Protein Urine Negative (Negative); Specific Grav Ur 1.023 (1.001-1.035); Squamous Epithelial Cell Urine Many /hpf (Few); Urobilinogen Urine Negative mg/dL (<2.0)
--- NOTE | 2020-09-03 14:11 | ED.GENADULT ---
HPI - General Adult General Chief complaint: Nausea/Vomiting/Diarrhea Stated complaint: n/v/d Time Seen by Provider: 09/03/20 13:46 Source: patient History of Present Illness HPI narrative: Patient is a 30 y/o female complaining of generalized abdominal pain starting 3 days ago. She describes her pain as sharp and rates it as 10/10 at worst and 7/10 currently. She states that her pain is waxing and waning. She took Bentyl, which did not help much. She also has vomiting and diarrhea. Related Data Home Medications Medication Instructions Recorded Confirmed dicyclomine 05/17/20 gabapentin 09/03/20 Allergies Allergy/AdvReac Type Severity Reaction Status Date / Time latex Allergy Unknown Swelling Verified 09/03/20 13:51 Review of Systems Constitutional: Constitutional: Denies chills, Denies fever(s), Denies headache(s) and Denies weakness Eyes: Eyes: Denies blurry vision ENT: Denies headache(s) and Denies neck pain Cardiovascular: Cardiovascular: Denies chest pain and Denies dyspnea Respiratory: Respiratory: Denies cough and Denies dyspnea Gastrointestinal: Gastrointestinal: Reports abdominal pain, Reports diarrhea, Reports nausea and Reports vomiting Genitourinary: Genitourinary: Denies hematuria and Denies dysuria Musculoskeletal: Musculoskeletal: Denies back pain and Denies neck pain Neurologic: Denies headache(s) and Denies weakness PMFSH Past Medical History Medical History Asthma Depression with anxiety IBS (irritable bowel syndrome) Nose fracture Seasonal allergies Type 1 diabetes mellitus With diabetic peripheral neuropathy. Hemoglobin A1c was 12.7% in October 2018. Surgical History Surgical History History of section History of cholecystectomy Family History Family History Mother Depression Sibling Family history of attention deficit hyperactivity disorder (ADHD) Social History Social History Social History: The patient lives in [place] with her 7-year-old daughter. 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 She smoked a few cigarettes a day for about a year when she was younger. She denies alcohol and illicit substance use. She designates her mother, Georgette Timmons, as her surrogate decision maker and she wishes to be a full code. Smoking packs per day: 0.3 Smoking cigarettes per day: 6.0 Years smoked: 1 Smoking pack-years: 0.30 Smoking status: Never smoker Second hand tobacco smoke exposure: Yes (ex fiance used to smoke in the basement) Smoking end date: 07/28/02 Alcohol intake: never Substance use: never Substance use type: does not use Gender identity (if verbalized by the patient): Female Exam Const: General: no acute distress and well developed Orientation/consciousness: oriented to person, oriented to place, oriented to time and patient oriented x3 HENMT: Head: normocephalic Ears: external ears normal General nose exam: Normal external nose present Eyes: General: appearance normal, both eyes and all related structures Conjunctivae: conjunctivae normal Neck: Neck: normal visual inspection and full ROM Chest: Chest palpation & inspection: normal inspection of the chest and no tenderness Resp: Effort & Inspection: normal respiratory effort Auscultation: clear to auscultation bilaterally Cardio: Rate: regular rate Rhythm: regular rhythm GI: GI Palp: No abdominal tenderness and Yes Soft to palpation Skin: General skin exam: normal color and turgor normal Neuro: General: oriented to person, oriented to place, oriented to time and patient oriented x3 Cognition (Neuro): normal cognition Extrem: General: normal to inspection, full ROM and no pedal edema Psych: Appearance:
[2020-09-03 14:18] VITALS: BP 125/90; PULSE 92
[2020-09-03] MEDS: SODIUM CHLORIDE 0.9% IV 1,000 ML 999 ML IV CONT (14:18)
[2020-09-03 14:19] VITALS: BP 102/75; BP 109/77; PULSE 101; PULSE 95
[2020-09-03 14:20] LABS: Alanine Aminotransferase 19 U/L (4-35); Alkaline Phosphatase 66 U/L (38-126); Anion Gap 6 mmol/L (8-16); Aspartate Amino Transferase 22 U/L (14-36); Bilirubin,Total 0.2 mg/dL (0.2-1.3); Blood Urea Nitrogen 14 mg/dL (7-17); Carbon Dioxide 29 mmol/L (22-30); Chloride 102 mmol/L (98-107); Estimated CRCL calculation 116 ml/min; Estimated Glomerular Filt Rate > 60; Glucose 273 mg/dL (65-105); Potassium 4.3 mmol/L (3.4-5.0); Sodium 137 mmol/L (137-145)
[2020-09-03] MEDS: KETOROLAC 30 MG/ML VIAL (*BKC) IV PUSH (14:22)
[2020-09-03] MEDS: METOCLOPRAMIDE HCL INJ 10 MG/2 ML VIAL IV PUSH (14:22)
[2020-09-03 14:37] VITALS: BP 106/60; PULSE 91; RESP 18; O2SAT 96
[2020-09-03 14:52] VITALS: TEMP 37.1
== END 2020-09-03 16:03 | disposition home or self-care (01) ==
PROVIDERS: Emergency Provider Emergency Medicine; PCP Emergency Medicine
DX: R10.84 Generalized abdominal pain (principal); R11.10 Vomiting, unspecified; R19.7 Diarrhea, unspecified; J45.909 Unspecified asthma, uncomplicated; K58.9 Irritable bowel syndrome, unspecified; E10.42 Type 1 diabetes mellitus with diabetic polyneuropathy; Z87.891 Personal history of nicotine dependence
CPT/HCPCS: 36415; 80053; 81001; 81025; 85025; 87077; 87086; 87088; 87186; 96361; 96374; 96375; 99284; J1885; J2765; J7030

== ENCOUNTER 2020-09-28 07:35 | Emergency (ER) | payer OTHER, SELFPAY ==
[2020-09-28 07:39] VITALS: BP 103/80; PULSE 100; RESP 17; TEMP 36.7; O2SAT 100
--- NOTE | 2020-09-28 08:02 | ED.ALLEREA ---
HPI - Allergic Reaction General Chief complaint: Allergic Reaction Stated complaint: rash to arm Time Seen by Provider: 09/28/20 07:40 History of Present Illness HPI narrative: 30 yo female w/ h/o type 1 DM, IBS presents to the ED c/o a rash. She awoke this morning with a painful rash on the left forearm. It feels like tingling and burning. She also noted a small red patch on the left shoulder. 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 No other systemic symptoms. Related Data Home Medications Medication Instructions Recorded Confirmed gabapentin 09/03/20 Allergies Allergy/AdvReac Type Severity Reaction Status Date / Time latex Allergy Unknown Swelling Verified 09/28/20 07:42 Review of Systems Review of Systems: All systems reviewed & are unremarkable except as noted in HPI and below Constitutional: Constitutional: Denies fever(s) and Denies weakness Cardiovascular: Cardiovascular: Denies chest pain Respiratory: Respiratory: Denies dyspnea Gastrointestinal: Gastrointestinal: Denies nausea Genitourinary: Genitourinary: Reports no additional female genitourinary complaints Neurologic: Denies confusion, Reports numbness and Denies weakness [facility] Past Medical History Medical History Asthma Depression with anxiety IBS (irritable bowel syndrome) Nose fracture Seasonal allergies Type 1 diabetes mellitus With diabetic peripheral neuropathy. Hemoglobin A1c was 12.7% in October 2018. Surgical History Surgical History History of section History of cholecystectomy Family History Family History Mother Depression Sibling Family history of attention deficit hyperactivity disorder (ADHD) Social History Social History Social History: The patient lives in [place] with her 7-year-old daughter. 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 She smoked a few cigarettes a day for about a year when she was younger. She denies alcohol and illicit substance use. She designates her mother, Georgette Timmons, as her surrogate decision maker and she wishes to be a full code. Smoking packs per day: 0.3 Smoking cigarettes per day: 6.0 Years smoked: 1 Smoking pack-years: 0.30 Smoking status: Never smoker Second hand tobacco smoke exposure: Yes (ex fiance used to smoke in the basement) Smoking end date: 07/28/02 Alcohol intake: never Substance use: never Substance use type: does not use Gender identity (if verbalized by the patient): Female Exam Const: General: healthy appearing, no acute distress and alert Orientation/consciousness: patient oriented x3 HENMT: Head: normal to inspection Neck: Neck: normal visual inspection Resp: Effort & Inspection: normal respiratory effort Cardio: Other: 2 + left radial Course Vital Signs Vital signs: Vital Signs Temperature 36.7 C 09/28/20 07:39 Pulse Rate 100 09/28/20 07:39 Respiratory Rate 17 09/28/20 07:39 Blood Pressure 103/80 09/28/20 07:39 Pulse Oximetry 100 09/28/20 07:39 Temperature 36.7 C 09/28/20 07:39 Pulse Rate 100 09/28/20 07:39 Respiratory Rate 17 09/28/20 07:39 Blood Pressure 103/80 09/28/20 07:39 Pulse Oximetry 100 09/28/20 07:39 MDM - Allergic Reaction MDM Narrative Medical decision making narrative: Vesicular rash could be shingles or contact dermatitis. It appears at least nearly dermatomal so I will include antivirals. I advised her to monitor her blood sugar closely while on prednisone. Differential Diagnosis Differential diagnosis: Likely allergic reaction, contact dermatitis and viral enanthem Medical Records Attestation: I reviewed the
[2020-09-28] MEDS: predniSONE 20 MG TABLET 60 MG PO (08:32)
[2020-09-28] MEDS: ACYCLOVIR 400 MG TABLET 800 MG PO (08:32)
== END 2020-09-28 08:20 | disposition home or self-care (01) ==
PROVIDERS: Emergency Provider Emergency Medicine; PCP Emergency Medicine
DX: R21 Rash and other nonspecific skin eruption (principal); K58.9 Irritable bowel syndrome, unspecified; J45.909 Unspecified asthma, uncomplicated; E10.42 Type 1 diabetes mellitus with diabetic polyneuropathy; Z87.891 Personal history of nicotine dependence; Z77.22 Contact with and (suspected) exposure to environmental tobacco smoke (acute) (chronic)
CPT/HCPCS: 99283; A9270; J7512

== ENCOUNTER 2021-01-05 11:10 | Emergency (ER) | payer OTHER, SELFPAY ==
[2021-01-05 11:24] VITALS: BP 114/74; PULSE 108; RESP 16; TEMP 36.8; O2SAT 100
--- NOTE | 2021-01-05 12:13 | ED.GENADULT ---
HPI - General Adult General Chief complaint: Urogenital-Female Stated complaint: test Time Seen by Provider: 01/05/21 12:13 Source: patient and RN notes reviewed Mode of arrival: ambulatory Limitations: no limitations History of Present Illness HPI narrative: 30-year-old female presents with urinary complaints for 1 day. Keren reports concerns of being (home HCG positive on 01/04/2021) and increase frequency urination. Dysuria consist of mid-back pain and frequency.? No treatment.? Denies fever or chills. No significant pelvic pain. No vaginal discharge.? No concerns for STDs. Exacerbating factors urinating.? Denies hematuria or vaginal bleeding. LMP 11/16/2020.? No flank pain. Denies nausea, vomiting, and abdominal pain.? Tolerating liquids well.? Remains active. The patient reports she has not been diagnosed with COVID-19. ?The patient reports she is not waiting for the results of a COVID-19 lab test. ?The patient reports she does not have chills, weakness, or fatigue. ?The patient reports she does not have any loss of taste or smell, sore throat, and diarrhea. ?Denies recent traveling. ?Denies concerns for COVID-19 or exposures. ?At this time, the patient is not suspected of having COVID-19. Complaints of redness, tenderness, and swelling to left side of scalp for the past 7 days. Tender to touch. No drainage. History of skin abscess. Some parts of this dictation were generated by voice recognition software and may contain typographical and/or grammatical inaccuracies. Related Data Home Medications Medication Instructions Recorded Confirmed gabapentin 300 mg PO DIRECTED 09/03/20 01/05/21 Allergies Allergy/AdvReac Type Severity Reaction Status Date / Time latex Allergy Unknown Swelling Verified 09/28/20 07:42 Review of Systems Review of Systems: Narrative: CONSTITUTIONAL: Denies fever, chills, sweats. EYES: Denies visual changes, redness, discharge. ENT: Denies rhinorrhea, congestion, sore throat, otalgia. CARDIOVASCULAR: Denies chest pain, palpitations, edema. RESPIRATORY: Denies dyspnea, wheezing, cough. GASTROINTESTINAL: Denies abdominal pain, nausea, vomiting, diarrhea. GENITOURINARY: Complains of dysuria (frequency). Denies burning, urgency, hematuria, abnormal discharge. SKIN: Denies rash or itching. Complains of redness, tenderness, and swelling to left side of scalp. MUSCULOSKELETAL: Complains of mid-back pain. Denies joint pain or myalgia. NEUROLOGIC: Denies numbness or focal weakness. PSYCHIATRIC: Denies anxiety or depression. All systems reviewed & are unremarkable except as noted in HPI and below. [facility] Past Medical History Medical History Asthma Depression with anxiety IBS (irritable bowel syndrome) Nose fracture Seasonal allergies Type 1 diabetes mellitus With diabetic peripheral neuropathy. Hemoglobin A1c was 12.7% in October 2018. Surgical History Surgical History History of section History of cholecystectomy Family History Family History Mother Depression Sibling Family history of attention deficit hyperactivity disorder (ADHD) Social History Social History Social History: The patient lives in [place] with her 7-year-old daughter. 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 She smoked a few cigarettes a day for about a year when she was younger. She denies alcohol and illicit substance use. She designates her mother, Georgette Timmons, as her surrogate decision maker and she wishes to be a full code. Smoking packs per day: 0.3 Smoking cigarettes per day: 6.0 Years smoked: 1 Smoking pack-years: 0.30 Smoking status: Never smoker Second hand tobacco smoke exposure: Yes (
== END 2021-01-05 12:42 | disposition home or self-care (01) ==
PROVIDERS: Emergency Provider Nurse Practitioner Family; PCP Emergency Medicine
DX: R30.0 Dysuria (principal); L02.811 Cutaneous abscess of head [any part, except face]; Z32.02 Encounter for pregnancy test, result negative; J45.909 Unspecified asthma, uncomplicated; E10.42 Type 1 diabetes mellitus with diabetic polyneuropathy; Z87.891 Personal history of nicotine dependence
CPT/HCPCS: 81003; 81025; 87077; 87086; 87088; 87186; 99213; G0463

== ENCOUNTER 2021-10-01 17:39 | Emergency (ER) | payer OTHER, SELFPAY ==
--- NOTE | ~2021-10-01 | CT_ITS ---
EXAMINATION: CTA chest PE protocol DATE: 10/01/2021 20:03 INDICATION: Rest pain and shortness of breath TECHNIQUE: Computed tomography (CT) pulmonary angiogram of the chest was performed with 100 mL Omnipa que-350 intravenous contrast. Additional 3D reconstructions utilizing coronal maximum intensity proje ction (MIP) were performed. Automated exposure control and iterative reconstruction technique were em ployed. The dose-length product was 149.65 mGy-cm. COMPARISON: 11/07/2018 FINDINGS: Excellent contrast opacification of the pulmonary arteries. There is mild streak artifact from dense contrast in the superior vena cava and right atrium. No significant respiratory motion artifact yield ing diagnostic quality study which demonstrates no pulmonary embolism. No pneumonia, pulmonary edema, pleural effusion or pneumothorax. Heart size is normal. No pericardial effusion. Thoracic aorta is n ormal in caliber with no dissection. No pathologically enlarged thoracic lymphadenopathy. There is di ffuse wall thickening along the mid to distal esophagus consistent with esophagitis. Cholecystectomy clips the gallbladder fossa. Mild thoracic dextroscoliosis. IMPRESSION: 1. No pulmonary embolism or other acute cardiopulmonary disease. 2. Diffuse wall thickening at the mid to distal esophagus consistent with esophagitis. Reviewed, dictated and finalized at location A. SION RN IMPRESSION: 1. No pulmonary embolism or other acute cardiopulmonary disease. 2. Diffuse wall thickening at the mid to distal esophagus consistent with esoph agitis.
--- NOTE | ~2021-10-01 | XR_ITS ---
EXAMINATION: XR chest 1V portable DATE: 10/01/2021 18:11 INDICATION: Chest pain radiating into the neck TECHNIQUE: frontal view of the chest was obtained. COMPARISON: Chest radiograph dated 08/04/2019 FINDINGS: The lungs remain clear with no focal airspace opacities, pulmonary edema, pleural effusion or pneumot horax. The cardiomediastinal silhouette is normal. 15 degrees thoracic dextroscoliosis. IMPRESSION: 1. No acute cardiopulmonary disease. Reviewed, dictated and finalized at location A. K KILN BURNER
[2021-10-01 17:43] VITALS: BP 146/95; PULSE 108; RESP 22; O2SAT 98
--- NOTE | 2021-10-01 17:43 | ECG_ITS ---
Measurements Intervals Williamson Rate: 111 P: 75 VT: 188 QRS: 44 QRSD: 86 T: 60 QT: 324 QTc: 442 Interpretive Statements SINUS TACHYCARDIA BASELINE ARTIFACT BORDERLINE ECG COMPARED TO ECG 08/04/2019 08:44:18 HEART RATE HAS INCREASED Electronically Signed On 10-02-2021 14:45:49 [employer] by Saqib Santoyo M.D.
[2021-10-01 17:48] VITALS: PULSE 107; PULSE 112; RESP 26
[2021-10-01] MEDS: ASPIRIN 81 MG CHEWABLE TABLET 324 MG PO (17:52)
[2021-10-01 17:57] LABS: Glucose Point of Care 306 mg/dl (65-105)
[2021-10-01 18:00] VITALS: PULSE 100; RESP 22
--- NOTE | 2021-10-01 18:00 | ED.CHESTPAIN ---
HPI - Chest Pain General Chief Complaint: Chest Pain Stated Complaint: cp/diff breathing Time Seen by Provider: 10/01/21 17:45 Source: patient Mode of arrival: ambulatory Limitations: no limitations History of Present Illness HPI narrative: 31 year old female presents today with complaints of chest pain and sob that started sometime today but she is not sure when. Patient has history of anxiety, poorly controlled DM, right 5th toe ambutation, and wound to left lateral foot. Patient states she thinks she is having an anxiety attack but she wanted to make sure cause her pain was a burning sensation across the clavicle area. Patient in tears during the assessment. Denies pain radiating to jaw or down arm. Patient has not eaten at all today took her lantus last night and only 3 units of novolog today just prior to coming. Related Data Allergies Allergy/AdvReac Type Severity Reaction Status Date / Time latex Allergy Unknown Swelling Verified 10/01/21 17:49 Review of Systems Review of Systems: CONSTITUTIONAL: Denies fever, chills, or sweats. EYES: Denies visual changes, redness, or discharge. ENT: Denies rhinorrhea, congestion, sore throat, or otalgia. CARDIOVASCULAR: Chest pain. Denies palpitations, or edema. RESPIRATORY: Shortness of breath. Denies cough. GASTROINTESTINAL: Denies abdominal pain, nausea, vomiting, or diarrhea. GENITOURINARY: Denies dysuria or hematuria. SKIN: Denies rash or itching. MUSCULOSKELETAL: Denies back pain, joint pain, or myalgia. NEUROLOGIC: Denies headache, numbness, dizziness, or weakness. PSYCHIATRIC: Increased anxiety and stressors at home. Denies depression. [facility] Past Medical History Medical History Asthma Depression with anxiety IBS (irritable bowel syndrome) Nose fracture Seasonal allergies Type 1 diabetes mellitus With diabetic peripheral neuropathy. Hemoglobin A1c was 12.7% in October 2018. Surgical History Surgical History History of section History of cholecystectomy Family History Family History Mother Depression Sibling Family history of attention deficit hyperactivity disorder (ADHD) Social History Social History (Reviewed 10/02/21 @ 00:04 by KENDELL Somers Social History: The patient lives in [place] with her 7-year-old daughter. 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 She smoked a few cigarettes a day for about a year when she was younger. She denies alcohol and illicit substance use. She designates her mother, Georgette Timmons, as her surrogate decision maker and she wishes to be a full code. Smoking packs per day: 0.3 Smoking cigarettes per day: 6.0 Years smoked: 1 Smoking pack-years: 0.30 Smoking status: Never smoker Second hand tobacco smoke exposure: Yes (ex fiance used to smoke in the basement) Smoking end date: 07/28/02 Alcohol intake: never Substance use: never Substance use type: does not use Gender identity (if verbalized by the patient): Female Exam Narrative: GENERAL: Well-appearing, well-nourished, and in no acute distress. HEAD: Normocephalic, atraumatic. EYES: PERRLA and EOMI. ENT: Nares clear, no rhinorrhea or epistaxis. Mucous membranes moist. Oropharynx without tonsillar hypertrophy exudate or other lesions. Bilateral TMs pearly castro nonbulging NECK: Supple. No adenopathy or masses. No carotid bruits or JVD CHEST: Clear to auscultation. No respiratory distress. No wheezes rales or rhonchi HEART: Regular rate and rhythm. No murmur heard. Normal peripheral pulses. ABDOMEN: Soft, nontender, nondistended, normal active bowel sounds. EXTREMITIES: Normal range of motion. No edema. SKIN: Warm, dry, no rash. NEURO: No focal deficits. Alert and oriented x3. PSYCH: Normal mood and affect. Co
[2021-10-01 18:10] LABS: Basophils Absolute Auto 0.1 K/mm3 (0.0-0.1); Eosinophils Absolute Auto 0.3 K/mm3 (0-0.3); Eosinophils Percent Auto 3.7 % (0-4.4); Hematocrit 36.4 % (37.0-47.0); Hemoglobin 11.1 g/dL (12.0-15.0); Immature Granulocyte Absolute 0.01 K/mm3 (0.00-0.031); Immature Granulocyte Percent A 0.1 % (0-0.5); Lymphocytes Absolute Auto 2.75 K/mm3 (0.9-3.2); Lymphocytes Percent Auto 39.5 % (18.3-44.2); Mean Corpuscular HGB Conc 30.5 g/dl (32-36); Mean Corpuscular Hemoglobin 24.6 pg (26-34); Mean Corpuscular Volume 80.7 fl (80-100); Mean Platelet Volume 10.1 fl (7.4-10.4); Monocytes Absolute Auto 0.5 K/mm3 (0.1-0.6); Monocytes Percent Auto 6.6 % (2.6-8.5); Neutrophils Absolute Auto 3.4 K/mm3 (1.3-6.7); Neutrophils Percent Auto 49.1 % (45.5-73.1); Platelet Count Result 436 k/mm3 (150-375); Red Blood Count 4.51 M/mm3 (4.2-5.4); Red Cell Distribution Width 15.3 % (11.5-14.5)
[2021-10-01 18:15] VITALS: PULSE 100; RESP 21
[2021-10-01 18:22] LABS: Prothrombin Time 13.1 Seconds (11.1-14.7)
[2021-10-01] MEDS: ONDANSETRON HCL ODT 4 MG TABLET PO (18:22)
[2021-10-01] MEDS: LORazepam (*CRX) 0.5 MG TABLET PO (18:22)
[2021-10-01 18:23] LABS: Alanine Aminotransferase 18 U/L (4-35); Albumin Level 4.5 g/dL (3.5-5.1); Alkaline Phosphatase 91 U/L (38-126); Anion Gap 8 mmol/L (8-16); Aspartate Amino Transferase 27 U/L (14-36); Bilirubin,Total 0.3 mg/dL (0.2-1.3); Blood Urea Nitrogen 18 mg/dL (7-17); Calcium 9.1 mg/dL (8.4-10.2); Carbon Dioxide 25 mmol/L (22-30); Chloride 102 mmol/L (98-107); Estimated CRCL calculation 126 ml/min; Estimated Glomerular Filt Rate > 60; Glucose 312 mg/dL (65-110); Lipase 31 U/L (23-300); Potassium 4.2 mmol/L (3.4-5.0); Sodium 135 mmol/L (137-145)
[2021-10-01] MEDS: FAMOTIDINE 20 MG/2 ML VIAL IV PUSH (18:24)
[2021-10-01] MEDS: SODIUM CHLORIDE 0.9% IV 1,000 ML 999 ML IV CONT (18:25)
[2021-10-01 18:34] LABS: Troponin I < 0.012 ng/mL (0.000-0.034)
--- NOTE | 2021-10-01 19:41 | PC.NURSE ---
this rn at bedside to assist patient to bathroom, and start bedside preg at this time.
[2021-10-01 19:54] LABS: Add Urine Microscopic? YES; Appearance Urine Cloudy (Clear); Bilirubin Urine Negative (Negative); Blood Urine Negative (Negative); Color Urine Yellow (Yellow); Glucose Urine UA 3+ mg/dL (Negative); Ketones Urine Trace mg/dL (Negative); Leukocyte Esterase Ur Negative LEU/UL (Negative); Mucus Urine Rare /lpf; Nitrate Urine Negative (Negative); Protein Urine Negative (Negative); Squamous Epithelial Cell Urine Occasional /hpf (Few); Urobilinogen Urine Negative mg/dL (<2.0); WBC Urine 0-3 /hpf
[2021-10-01 20:18] LABS: Specific Grav Ur 1.035 (1.001-1.035)
[2021-10-01 20:45] LABS: Troponin I < 0.012 ng/mL (0.000-0.034)
[2021-10-01] MEDS: BELLADONNA ALK/PHENOB ELIX 10 ML, MAG HYDROX/ALUMINUM HYD/SIMETH 30 ML, LIDOCAINE HCL 2... PO (20:46)
[2021-10-01 20:48] VITALS: BP 100/66; PULSE 93; RESP 16; O2SAT 100
== END 2021-10-01 21:00 | disposition home or self-care (01) ==
PROVIDERS: Emergency Medicine; Emergency Provider Nurse Practitioner Family; PCP Emergency Medicine
DX: K20.90 Esophagitis, unspecified without bleeding (principal); R07.89 Other chest pain; J45.909 Unspecified asthma, uncomplicated; E10.42 Type 1 diabetes mellitus with diabetic polyneuropathy; K58.9 Irritable bowel syndrome, unspecified; F41.8 Other specified anxiety disorders; Z89.421 Acquired absence of other right toe(s); Z79.4 Long term (current) use of insulin; Z87.891 Personal history of nicotine dependence; R00.0 Tachycardia, unspecified; R94.31 Abnormal electrocardiogram [ECG] [EKG]
CPT/HCPCS: 36415; 71045; 71275; 80053; 81001; 81025; 82948; 83690; 84484; 85025; 85610; 85730; 93005; 96361; 96374; 99284; A9270; J7030; Q9967

== ENCOUNTER 2021-11-27 13:40 | Emergency (ER) | payer OTHER, SELFPAY ==
[2021-11-27 13:47] VITALS: BP 101/67; PULSE 100; RESP 16; TEMP 36.8; O2SAT 100
--- NOTE | 2021-11-27 14:04 | ED.URI ---
HPI - URI/Sore Throat General Chief Complaint: Upper Respiratory Infection Stated Complaint: uri Time Seen by Provider: 11/27/21 13:50 Source: patient Mode of arrival: ambulatory Limitations: no limitations History of Present Illness HPI Narrative: Ms. Timmons is a 31-year-old female patient presenting to the clinic today with complaints of cough and nasal congestion x4 days. She denies any fever or chills. She does have a history of asthma. Does have a productive cough with some green phlegm. She denies any known exposure today anyone with COVID or flu, strep. She is having some mild shortness of breath due to cough. MD elicited complaint: cough, rhinorrhea and nasal congestion Related Data Home Medications Medication Instructions Recorded Confirmed aripiprazole mg 11/27/21 prazosin 11/27/21 Allergies Allergy/AdvReac Type Severity Reaction Status Date / Time latex Allergy Unknown Swelling Verified 10/01/21 17:49 Review of Systems Review of Systems: Pertinent positives per HPI. Patient denies any fever, chills, rash, headache, visual changes, dizziness, shortness of breath, chest pain, palpitations, nausea, vomiting, diarrhea, constipation, abdominal pain, or any urinary issues. [facility] Past Medical History Medical History Asthma Depression with anxiety IBS (irritable bowel syndrome) Nose fracture Seasonal allergies Type 1 diabetes mellitus With diabetic peripheral neuropathy. Hemoglobin A1c was 12.7% in October 2018. Surgical History Surgical History History of section History of cholecystectomy Family History Family History Mother Depression Sibling Family history of attention deficit hyperactivity disorder (ADHD) Social History Social History Social History: The patient lives in [place] with her 7-year-old daughter. 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 She smoked a few cigarettes a day for about a year when she was younger. She denies alcohol and illicit substance use. She designates her mother, Georgette Timmons, as her surrogate decision maker and she wishes to be a full code. Smoking packs per day: 0.3 Smoking cigarettes per day: 6.0 Years smoked: 1 Smoking pack-years: 0.30 Smoking status: Never smoker Second hand tobacco smoke exposure: Yes (ex fiance used to smoke in the basement) Smoking end date: 07/28/02 Alcohol intake: never Substance use: never Substance use type: does not use Gender identity (if verbalized by the patient): Female Comments At the time of my signature, I reviewed and agree with the nursing past medical, surgical, social, and family history. There is no relevant family history pertinent to the patient complaint. Exam Narrative: General: Well-developed, well nourished, in no apparent distress Head: Normocephalic, atraumatic Eyes: Pupils equally round and reactive to light bilaterally, EOM intact, sclera and conjunctive clear, no discharge, lids normal Ears: TMs intact and clear, ear canals clear, no drainage, grossly hearing normal. Nose: Nares patent, clear nasal discharge, moderate inflammation, no sinus tenderness. Mouth: Oral pharynx without lesions or masses, good dentition, MMM. Postnasal drip Neck: Supple, trachea midline, no enlargement of anterior or posterior cervical nodes, no thyroid masses or goiter palpable. Cardio: Regular rate and rhythm, s1 and s2 normal, no murmur appreciated. Resp: Posterior expiratory wheezing to the right lung mckeon, otherwise clear, no rhonchi, rales, or rubs Course Course Emergency Course: Portions of this record may have been created with voice recognition software. Level of Care: Expre
== END 2021-11-27 14:10 | disposition home or self-care (01) ==
PROVIDERS: Emergency Provider Nurse Practitioner Family
DX: J06.9 Acute upper respiratory infection, unspecified (principal); J45.909 Unspecified asthma, uncomplicated; F17.210 Nicotine dependence, cigarettes, uncomplicated
CPT/HCPCS: 99213; G0463

== ENCOUNTER 2021-12-16 15:43 | Emergency (ER) | payer OTHER, SELFPAY ==
--- NOTE | 2021-12-16 15:46 | ED.URI ---
HPI - URI/Sore Throat General Chief Complaint: Upper Respiratory Infection Stated Complaint: cough Time Seen by Provider: 12/16/21 16:08 Source: patient, family, RN notes reviewed and old records reviewed Mode of arrival: ambulatory Limitations: no limitations History of Present Illness HPI Narrative: 31-year-old female presents to the [facility] with complaints of chronic cough. Had been seen on November 27 and diagnosed with an upper respiratory infection. Was sent home on steroids and Tessalon Perles per the patient. Has a history of asthma. Patient is also concerned she might have a UTI. And states that a sore on the lower lateral aspect right foot third toe has opened. In May had a amputation of the fifth toe along with the fifth meta tarsal. Patient states that she has been applying Betadine to the area. Related Data Home Medications Medication Instructions Recorded Confirmed aripiprazole mg 11/27/21 prazosin 11/27/21 Allergies Allergy/AdvReac Type Severity Reaction Status Date / Time latex Allergy Unknown Swelling Verified 10/01/21 17:49 Review of Systems Review of Systems: All systems reviewed & are unremarkable except as noted in HPI and below Constitutional: Constitutional: Reports no additional constitutional complaints, Denies chills, Denies fever(s) and Denies headache(s) Eyes: Eyes: Reports no additional eye complaints ENT: Reports as per HPI, Denies vertigo, Denies dizziness, Denies headache(s), Denies nasal congestion and Denies sore throat Cardiovascular: Cardiovascular: Reports no additional cardiovascular complaints, Denies chest pain, Denies syncope, Denies rapid heart rate and Denies dyspnea Respiratory: Respiratory: Reports as per HPI, Reports cough, Reports dyspnea and Reports wheezing Gastrointestinal: Gastrointestinal: Reports no additional gastrointestinal complaints, Denies abdominal pain, Denies diarrhea, Denies nausea and Denies vomiting Genitourinary: Genitourinary: Reports as per HPI and Reports dysuria Musculoskeletal: Musculoskeletal: Reports no additional musculoskeletal complaints and Denies numbness Integumentary/Breasts: Skin/Breast: Reports as per HPI Comments: Wound third toe lateral aspect right foot Neurologic: Reports system reviewed and no additional complaints, except as documented, Denies vertigo, Denies dizziness, Denies syncope, Denies headache(s), Denies focal weakness and Denies numbness Psychiatric: Psychiatric: Reports no additional psychiatric complaints Allergic/Immunologic: Allergic/Immunologic: Reports no additional allergic/immunologic complaints and Denies wheezing PMFSH Past Medical History Medical History Asthma Depression with anxiety IBS (irritable bowel syndrome) Nose fracture Seasonal allergies Type 1 diabetes mellitus With diabetic peripheral neuropathy. Hemoglobin A1c was 12.7% in October 2018. Surgical History Surgical History History of section History of cholecystectomy Family History Family History Mother Depression Sibling Family history of attention deficit hyperactivity disorder (ADHD) Social History Social History Social History: The patient lives in [place] with her 7-year-old daughter. 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 She smoked a few cigarettes a day for about a year when she was younger. She denies alcohol and illicit substance use. She designates her mother, Georgette Timmons, as her surrogate decision maker and she wishes to be a full code. Smoking packs per day: 0.3 Smoking cigarettes per day: 6.0 Years smoked: 1 Smoking pack-years: 0.30 Smoking status: Never smoker Second hand tobacco smoke exposure: Yes (ex
[2021-12-16 15:50] VITALS: BP 123/86; PULSE 102; RESP 16; TEMP 35.9; O2SAT 98
[2021-12-16 16:06] LABS: Glucose Point of Care 171 mg/dl (65-105)
--- NOTE | 2021-12-16 16:25 | PC.NURSE ---
in br to obtain ua spec.
[2021-12-16] MEDS: ALBUTEROL SULFATE NEB 2.5 MG/3 ML INH INHALATION (16:29)
[2021-12-16] MEDS: IPRATROPIUM BR 0.02% INH SOLN 0.5 MG/2.5 ML VIAL INHALATION (16:29)
[2021-12-16 17:07] VITALS: PULSE 108; RESP 16; O2SAT 100
== END 2021-12-16 17:18 | disposition home or self-care (01) ==
PROVIDERS: Emergency Provider Nurse Practitioner; PCP Emergency Medicine
DX: S91.104A Unspecified open wound of right lesser toe(s) without damage to nail, initial encounter (principal); X58.XXXA Exposure to other specified factors, initial encounter; J20.9 Acute bronchitis, unspecified; J45.909 Unspecified asthma, uncomplicated; E10.42 Type 1 diabetes mellitus with diabetic polyneuropathy
CPT/HCPCS: 81003; 82948; 94640; 99213; G0463

== ENCOUNTER 2022-06-11 10:33 | Emergency (ER) | payer OTHER, SELFPAY ==
--- NOTE | ~2022-06-11 | XR_ITS ---
EXAMINATION: XR chest 2V DATE: 06/11/2022 11:21 INDICATION: Cough. TECHNIQUE: Frontal and lateral views of the chest were obtained. COMPARISON: Chest one view 10/01/2021, chest CT 10/01/2021 FINDINGS: The chest demonstrates clear lungs without pneumonia, pleural effusion, or pneumothorax. Th e heart size is normal. Surgical clips in the right upper quadrant are likely from cholecystectomy. IMPRESSION: 1. No acute cardiopulmonary disease. Reviewed, dictated and finalized at location A. YSIS TECHNICIAN
[2022-06-11 10:48] VITALS: BP 99/57; PULSE 98; RESP 16; TEMP 36.1; O2SAT 99
--- NOTE | 2022-06-11 10:59 | ED.URI ---
HPI - URI/Sore Throat General Chief Complaint: Upper Respiratory Infection Stated Complaint: cough/dizziness Time Seen by Provider: 06/11/22 10:59 Source: patient, RN notes reviewed and old records reviewed Mode of arrival: ambulatory Limitations: no limitations History of Present Illness HPI Narrative: 32-year-old female presents to the [facility] with complaints of cough, ear pain, congestion, intermittent dizziness and elevated blood sugars for the last 3 days. States she has been using her nebulizer treatment with no relief. Patient is a type 1 diabetic, history of asthma. MD elicited complaint: cough and nasal congestion Pertinent past history: asthma Related Data Home Medications Medication Instructions Recorded Confirmed aripiprazole 5 mg tablet 10 mg DIRECTED 11/27/21 06/11/22 prazosin 1 mg capsule 1 mg DIRECTED 11/27/21 06/11/22 dextroamphetamine-amphetamine 10 25 mg PO DAILY 06/11/22 06/11/22 mg tablet (Adderall) escitalopram oxalate 10 mg tablet 10 mg DIRECTED 06/11/22 06/11/22 Allergies Allergy/AdvReac Type Severity Reaction Status Date / Time latex Allergy Unknown Swelling Verified 10/01/21 17:49 Review of Systems Review of Systems: All systems reviewed & are unremarkable except as noted in HPI and below Constitutional: Constitutional: Reports as per HPI, Denies chills, Reports fatigue and Denies fever(s) Eyes: Eyes: Reports no additional eye complaints ENT: Reports as per HPI Cardiovascular: Cardiovascular: Reports no additional cardiovascular complaints Respiratory: Respiratory: Reports no additional respiratory complaints Gastrointestinal: Gastrointestinal: Reports no additional gastrointestinal complaints Musculoskeletal: Musculoskeletal: Reports no additional musculoskeletal complaints Integumentary/Breasts: Skin/Breast: Reports system reviewed and no additional complaints, except as docu Neurologic: Reports system reviewed and no additional complaints, except as documented Psychiatric: Psychiatric: Reports no additional psychiatric complaints Allergic/Immunologic: Allergic/Immunologic: Reports no additional allergic/immunologic complaints [facility] Past Medical History Medical History Asthma Depression with anxiety IBS (irritable bowel syndrome) Nose fracture Seasonal allergies Type 1 diabetes mellitus With diabetic peripheral neuropathy. Hemoglobin A1c was 12.7% in October 2018. Surgical History Surgical History History of section History of cholecystectomy Family History Family History Mother Depression Sibling Family history of attention deficit hyperactivity disorder (ADHD) Social History Social History Social History: The patient lives in [place] with her 7-year-old daughter. 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 She smoked a few cigarettes a day for about a year when she was younger. She denies alcohol and illicit substance use. She designates her mother, Georgette Timmons, as her surrogate decision maker and she wishes to be a full code. Smoking packs per day: 0.3 Smoking cigarettes per day: 6.0 Years smoked: 1 Smoking pack-years: 0.30 Smoking status: Never smoker Second hand tobacco smoke exposure: Yes (ex fiance used to smoke in the basement) Smoking end date: 07/28/02 Alcohol intake: never Substance use: never Substance use type: does not use Gender identity (if verbalized by the patient): Female Comments At the time of my signature, I reviewed and agree with the nursing past medical, surgical, social, and family history. There is no relevant family history pertinent to the patient complaint. Exam Const: General: comfortable, no acute distress, w
[2022-06-11 11:12] LABS: Glucose Point of Care 261 mg/dl (65-105)
== END 2022-06-11 11:51 | disposition home or self-care (01) ==
PROVIDERS: Emergency Provider Nurse Practitioner; PCP Emergency Medicine
DX: J40 Bronchitis, not specified as acute or chronic (principal); E10.9 Type 1 diabetes mellitus without complications; Z87.891 Personal history of nicotine dependence; Z20.822 Contact with and (suspected) exposure to COVID-19
CPT/HCPCS: 71046; 82948; 87426; 87804; 99213; C9803; G0463

== ENCOUNTER 2024-06-26 11:29 | Emergency (ER) | payer OTHER, SELFPAY ==
--- NOTE | ~2024-06-26 | XR_ITS ---
XR chest 2V DATE: 06/26/2024 12:49 INDICATION: Productive cough for 3 days TECHNIQUE: 2 views COMPARISON: None FINDINGS: Normal heart size. No hilar or mediastinal enlargement. There is patchy infiltrate in the left mid and lower lung, involving the left lower lobe. The lungs otherwise appear clear. No pleural effusion or pulmonary vascular congestion or pneumothorax. Mild thoracic dextro scoliosis. Status post cholecystectomy. IMPRESSION: Left lower lobe infiltrate consistent with pneumonia Reviewed, dictated and finalized at location A. PING CAR CONDUCTOR
[2024-06-26 11:39] VITALS: BP 100/65; PULSE 105; RESP 16; TEMP 36.1; O2SAT 99
--- NOTE | 2024-06-26 12:31 | ED_ITS ---
HPI - URI/Sore Throat General Chief Complaint: Upper Respiratory Infection Stated Complaint: cough,SOB,skin sore Time Seen by Provider: 06/26/24 12:31 Source: patient, RN notes reviewed and old records reviewed Mode of arrival: ambulatory Limitations: no limitations History of Present Illness HPI Narrative: Patient presents with complaints of productive cough, body aches, lack of energy. She reports symptoms have been present for approximately 1 week. She has been taking Diane-Haines cold medication. She does not believe she has been running a fever. She does report that she has had some chills. She does complain of some left ear pain. She denies any injury or trauma. She voices no other concerns or complaints Related Data Home Medications Medication Instructions Recorded Confirmed aripiprazole 10 mg tablet (Abilify) 10 mg PO DAILY 04/13/24 06/26/24 dextroamphetamine-amphetamine 20 20 mg PO DAILY 04/13/24 06/26/24 mg tablet (Adderall) fluoxetine 10 mg capsule 10 mg PO DAILY 04/13/24 06/26/24 metoclopramide HCl 5 mg tablet 5 mg PO Q6H 05/11/24 06/26/24 (Reglan) Allergies Allergy/AdvReac Type Severity Reaction Status Date / Time latex Allergy Intermediate Swelling Verified 06/26/24 11:31 Review of Systems Review of Systems: All systems reviewed & are unremarkable except as noted in HPI and below Constitutional: Constitutional: Reports no additional constitutional complaints ENT: Reports system reviewed and no additional complaints, except as documented and Reports otalgia Cardiovascular: Cardiovascular: Reports no additional cardiovascular complaints Respiratory: Respiratory: Reports as per HPI, Reports no additional respiratory complaints, Reports change in phlegm color, Reports chest congestion, Reports cough and Reports excessive phlegm production Gastrointestinal: Gastrointestinal: Reports no additional gastrointestinal complaints [facility] Past Medical History Medical History Amputation toe Asthma Cat scratch Cellulitis Cellulitis of knee, left Depression with anxiety IBS (irritable bowel syndrome) Nose fracture Seasonal allergies Type 1 diabetes mellitus With diabetic peripheral neuropathy. Hemoglobin A1c was 12.7% in October 2018. Surgical History Surgical History History of section History of cholecystectomy Family History Family History Mother Depression Sibling Family history of attention deficit hyperactivity disorder (ADHD) Social History Social History Social History: The patient lives in [place] with her 7-year-old daughter. 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 She smoked a few cigarettes a day for about a year when she was younger. She denies alcohol and illicit substance use. She designates her mother, Georgette Timmons, as her surrogate decision maker and she wishes to be a full code. Smoking packs per day: 0.3 Smoking cigarettes per day: 6.0 Years smoked: 1 Smoking pack-years: 0.30 Smoking status: Never smoker Second hand tobacco smoke exposure: Yes (ex fiance used to smoke in the basement) Smoking end date: 07/28/02 Alcohol intake: never Substance use: never Substance use type: does not use Do You Feel Safe in your Home?: Yes Lack of Transportation: No Lack of Food: Never True Current Housing: I Have Housing Concerned About Future Housing: No Difficulty Paying Gas/Electric Bills: No Difficulty Paying for Meds: No Currently Unemployed: No Education: High School Diploma/GED Difficulty w/ Childcare or Family Care: No Living arrangements: with family Gender identity (if verbalized by the patient): Female Comments At the time of my signature, I reviewed and agree with the nursing past medical, surgical, social, and family history. There is no relevant family history pertinent to the patient complaint. Exam Const: General: cooperative, no acute distress, alert and awake Orientation/consciousness: oriented to person, oriented to place and oriented to time HENMT: Head: normal to inspection Ears: TM's normal bilaterally Mouth: Yes moist mucous membranes Throat: posterior oropharynx normal Resp: Effort & Inspection: normal respiratory effort and able to speak in complete sentences Auscultation: clear to auscultation bilaterally, crackles on the left in the lower lung mckeon, no rales, no rhonchi and no wheezes Cardio: Palpation: normal PMI Rate: regular rate Rhythm: regular rhythm Heart sounds: S1 normal heart sound present and S2 normal heart sound present Neuro: General: oriented to person, oriented to place and oriented to time Cranial nerves: Yes CN's II-XII intact bilaterally Psych: Appearance: grossly normal Thought process: Normal thought process present Insight: Good insight present (Psych) Judgement: Good judgement present (Psych) Course Course Level of Care: Express Care Visit Vital Signs Vital signs: Vital Signs Temperature 96.9 F L 06/26/24 11:39 Pulse Rate 105 H 06/26/24 11:39 Respiratory Rate 16 06/26/24 11:39 Blood Pressure 100/65 06/26/24 11:39 Pulse Oximetry 99 06/26/24 11:39 Oxygen Delivery Autopap 06/26/24 11:39 Temperature 96.9 F L 06/26/24 11:39 Pulse Rate 105 H 06/26/24 11:39 Respiratory Rate 16 06/26/24 11:39 Blood Pressure 100/65 06/26/24 11:39 Pulse Oximetry 99 06/26/24 11:39 Oxygen Delivery Autopap 06/26/24 11:39 Reviewed MDM - URI/Sore Throat MDM Narrative Medical decision making narrative: History, exam, x-ray consistent with left lower lobe pneumonia. Given comorbidities will cover with both Augmentin and azithromycin. Refill bronchodilators. She is nontoxic appearing, stable for discharge home. Discharge instructions reviewed with patient, as well as provided in writing per nursing staff. The instructions also include specific and strict return/GO TO THE ER as well as f/u information. All questions have been answered, and the patient deny any further questions with discharge and discharge plan. Some parts of this dictation were generated by voice recognition software and may contain typographical and/or grammatical inaccuracies. Differential Diagnosis Differential diagnosis: Likely upper respiratory infection, otitis media, viral infection, influenza and pharyngitis Medical Records Attestation: I reviewed the patient's medical records. Imaging Data Attestation: I personally reviewed and interpreted this imaging study as follows: My impression: LLRoel dela cruz Radiologist's impression: [facility] [place] [address] [place] [address] XRay Report Signed Patient: Keren Timmons : 1990 MR#: [id number] Age: 34 Acct:[id number] Loc: [facility] ADM Date: 06/26/24Attending Dr: Ordering Physician: Blank Duarte FNP Date of Service: 06/26/24 Procedure(s): XR chest 2V Accession Number(s): [id number] cc: Blank Duarte FNP; Filiberto Thomas MD~ XR chest 2V DATE: 06/26/2024 12:49 INDICATION: Productive cough for 3 days TECHNIQUE: 2 views COMPARISON: None FINDINGS: Normal heart size. No hilar or mediastinal enlargement. There is patchy infiltrate in the left mid and lower lung, involving the left lower lobe. The lungs otherwise appear clear. No pleural effusion or pulmonary vascular congestion or pneumothorax. Mild thoracic dextro scoliosis. Status post cholecystectomy. IMPRESSION: Left lower lobe infiltrate consistent with pneumonia Reviewed, dictated and finalized at location A. AR SETTER OVERLOCK Dictated By: James Pimentel MD 06/26/24 1250 Signed By: <Electronically signed by James Pimentel MD in OV> Discharge Plan Discharge Clinical Impression: Pneumonia Qualifiers: Pneumonia type: due to unspecified organism Laterality: left Lung location: lower lobe of lung Qualified Code(s): J18.9 - Pneumonia, unspecified organism Patient Disposition: Home, Self-Care Condition: Stable Instructions: Antibiotic Form, Pneumonia (ED) Additional Instructions: Take medications as prescribed, follow with primary care provider. Emergency department for new or worse symptoms Patient Language: Sinhala Prescriptions: New albuterol sulfate [Ventolin HFA] 90 mcg/actuation HFA aerosol inhaler 2 puff inhalation QID PRN (Reason: shortness of breath or wheezing) Qty: 8.5 0RF azithromycin 250 mg tablet See Rx Instructions .ROUTE .COMPLEX Qty: 6 0RF Rx Instructions: For 250 mg dose pack: take 500 mg today (day 1), then 250 mg for 4 days (days 2-5) amoxicillin-pot clavulanate 875-125 mg tablet 1 tablet PO Q12H Qty: 20 0RF albuterol sulfate 1.25 mg/3 mL solution for nebulization 1.25 mg inhalation Q4H PRN (Reason: shortness of breath or wheezing) Qty: 90 0RF No Action albuterol sulfate 0.63 mg/3 mL solution for nebulization 0.63 mg inhalation Q6H Qty: 1800 2RF insulin glargine [Lantus Solostar U-100 Insulin] 100 unit/mL (3 mL) insulin pen See Rx Instructions subcut DAILY Qty: 45 3RF Rx Instructions: inject 40 units subcut daily; glucagon 3 mg/actuation spray,non-aerosol 3 mg intranasal ONCE Qty: 2 4RF Rx Instructions: as a single dose; may repeat once in 15 minutes if no response (DME) goBalto G7 Sensor Device See Rx Instructions .ROUTE .MEDSUPPLY Qty: 9 3RF Rx Instructions: Use to monitor glcuose dextroamphetamine-amphetamine [Adderall] 20 mg tablet 20 mg PO DAILY aripiprazole [Abilify] 10 mg tablet 10 mg PO DAILY fluoxetine 10 mg capsule 10 mg PO DAILY ropinirole 2 mg tablet 2 mg PO BID Qty: 180 2RF metoclopramide HCl [Reglan] 5 mg tablet 5 mg PO Q6H ondansetron HCl 4 mg tablet 4 mg PO Q6H PRN (Reason: nausea and vomiting) Qty: 30 0RF (DME) Yamel LC Sprint Nebulizer Set Misc See Rx Instructions .Route Qty: 1 0RF Rx Instructions: Use as directed with Albuterol Solution (Dispense whatever Nebulizer is covered) insulin lispro 100 unit/mL insulin pen See Rx Instructions .ROUTE .COMPLEX Qty: 15 3RF Dose Instruction: 1 SLIDING SCALE DOSE SUBCUTANEOUSLY USE DIRECTED PER SLIDING SCALE MAX 40 UNITS DAILY Rx Instructions: 1 SLIDING SCALE DOSE SUBCUTANEOUSLY USE DIRECTED PER SLIDING SCALE MAX 40 UNITS DAILY albuterol sulfate 90 mcg/actuation HFA aerosol inhaler See Rx Instructions .ROUTE .COMPLEX Qty: 8.5 2RF Dose Instruction: INHALE 1-2 PUFFS BY MOUTH EVERY 4-6 HOURS Rx Instructions: INHALE 1-2 PUFFS BY MOUTH EVERY 4-6 HOURS scopolamine base 1 mg over 3 days patch 3 day 1 patch transdermal Q3D PRN (Reason: nausea and vomiting) Qty: 4 0RF (DME) Omnipod 5 G6-G7 Pods (Gen 5) Cartridge See Rx Instructions .ROUTE .COMPLEX Qty: 10 3RF Dose Instruction: REPLACE POD EVERY 2 DAYS WITH NEW POD Rx Instructions: REPLACE POD EVERY 2 DAYS WITH NEW POD Follow-up/Referrals: Filiberto Thomas MD [Primary Care Provider] - 1 Week Time of Disposition: 13:05
== END 2024-06-26 13:14 | disposition home or self-care (01) ==
PROVIDERS: Emergency Provider Nurse Practitioner Family; PCP Emergency Medicine
DX: J18.9 Pneumonia, unspecified organism (principal); Z87.891 Personal history of nicotine dependence; J45.909 Unspecified asthma, uncomplicated; E10.42 Type 1 diabetes mellitus with diabetic polyneuropathy; F41.8 Other specified anxiety disorders
CPT/HCPCS: 71046; 99213; G0463

== ENCOUNTER 2025-02-26 14:21 | Emergency (ER) | payer OTHER, SELFPAY ==
[2025-02-26 14:39] VITALS: BP 93/66; PULSE 103; RESP 18; TEMP 36.6; O2SAT 100
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
[2025-02-26] MEDS: FLUORESCEIN SOD 1 MG/STRIP LEFT EYE (15:12)
[2025-02-26] MEDS: TETRACAINE HCL 0.5% OPHTH SOLN 4 ML BTL LEFT EYE (15:12)
[2025-02-26] MEDS: DACRIOSE EYE IRRIGATION 118 ML BOTTLE LEFT EYE (15:14)
== END 2025-02-26 15:30 | disposition home or self-care (01) ==
PROVIDERS: Emergency Provider Nurse Practitioner Family; PCP Emergency Medicine
DX: H57.89 Other specified disorders of eye and adnexa (principal); B36.0 Pityriasis versicolor; E10.42 Type 1 diabetes mellitus with diabetic polyneuropathy; J45.909 Unspecified asthma, uncomplicated; F41.8 Other specified anxiety disorders; Z87.891 Personal history of nicotine dependence; Z89.421 Acquired absence of other right toe(s)
CPT/HCPCS: 99213; A9270; G0463

== ENCOUNTER 2025-04-16 11:30 | Emergency (ER) | payer OTHER, SELFPAY ==
[2025-04-16 11:43] VITALS: BP 107/66; PULSE 107; RESP 20; TEMP 37.6; O2SAT 100
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
== END 2025-04-16 12:15 | disposition home or self-care (01) ==
PROVIDERS: Emergency Provider Nurse Practitioner Family; PCP Emergency Medicine
DX: J40 Bronchitis, not specified as acute or chronic (principal); Z87.891 Personal history of nicotine dependence; E10.42 Type 1 diabetes mellitus with diabetic polyneuropathy; F41.8 Other specified anxiety disorders; Z79.84 Long term (current) use of oral hypoglycemic drugs
CPT/HCPCS: 99213; G0463

== ENCOUNTER 2025-04-19 11:08 | Emergency (ER) | payer OTHER, SELFPAY ==
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
[2025-04-19 11:17] VITALS: BP 108/61; PULSE 104; RESP 16; TEMP 37.1; O2SAT 98
[2025-04-19] MEDS: DACRIOSE EYE IRRIGATION 118 ML BOTTLE LEFT EYE (11:53)
[2025-04-19] MEDS: TETRACAINE HCL 0.5% OPHTH SOLN 4 ML BTL LEFT EYE (11:54)
[2025-04-19] MEDS: FLUORESCEIN SOD 1 MG/STRIP LEFT EYE (11:54)
== END 2025-04-19 12:10 | disposition short-term general hospital (02) ==
PROVIDERS: Emergency Provider Nurse Practitioner Family; PCP Emergency Medicine
DX: H54.62 Unqualified visual loss, left eye, normal vision right eye (principal); E10.42 Type 1 diabetes mellitus with diabetic polyneuropathy; Z79.4 Long term (current) use of insulin; J45.909 Unspecified asthma, uncomplicated; F41.8 Other specified anxiety disorders; Z87.891 Personal history of nicotine dependence
CPT/HCPCS: 99213; A9270; G0463